=== PATIENT | male | born 1950 | race Caucasian/White ===

== ENCOUNTER 2019-06-01 03:24 | Inpatient (IN) | payer MEDICARE ==
[~2019-06-01] VITALS: Ht 180.3 cm; Wt 85.2 kg
[2019-06-01] MEDS ORDERED: IPRATROPIUM BROM 0.5 MG/2.5ML INH SOL NEB ONE (03:30)
[2019-06-01] MEDS ORDERED: methylPREDNISolone SOD SUCC 125 MG/2 ML VL IV ONE (03:30)
[2019-06-01] MEDS ORDERED: ALBUTEROL SULF 2.5 MG/0.5ML(0.5%) NEB SOLN NEB ONE (03:30)
[2019-06-01 04:21] LABS: Hematocrit 47.2 % (41.0-53.0); Hemoglobin 15.8 g/dL (13.5-17.5); Mean Corpuscular Hemoglobin 32.5 pg (28.0-32.0); Mean Corpuscular Hgb Conc. 33.5 g/dL (32.0-36.0); Platelet Count (auto) 324 10^3/uL (140-450); Red Blood Cells 4.86 10^6/uL (4.5-5.90); Red Cell Distribution Width 13.7 % (11.8-14.3); White Blood Cell 20.7 10^3/uL (4.4-10.8)
[2019-06-01 04:22] LABS: Basophils % (manual) 0 (0.0-2.0); Blast Cells 0; Eosinophils % (manual) 0 (0-7); Metamyelocytes % 0; Myelocytes % 0; Promyelocytes % 0; Reactive Lymphocytes 0
[2019-06-01 04:47] LABS: INR 0.99 (0.9-1.15); Partial Thromboplastin Time 25.6 sec (23.64-32.05)
[2019-06-01 04:48] LABS: Band Neutrophils % (manual) 2; Lymphocytes % (manual) 16 (10.0-50.0); Monocytes % (manual) 6 (0-12)
[2019-06-01 04:51] LABS: Albumin 3.1 g/dL (3.4-5.0); Anion Gap 6 (5-15); Blood Urea Nitrogen 17 mg/dL (7-18); Carbon Dioxide 29 mmol/L (21-32); Chloride 107 mmol/L (98-107); Glucose 109 mg/dL (74-106); Magnesium 2.2 mg/dL (1.6-2.6); Potassium 3.7 mmol/L (3.5-5.1); Sodium 142 mmol/L (136-145)
[2019-06-01 04:56] LABS: Alanine Aminotransferase 23 U/L (16-61); Alkaline Phosphatase 108 U/L (45-117); Aspartate Aminotransferase 13 U/L (15-37); BUN/Creatinine Ratio 17.5; Bilirubin, Total 0.8 mg/dL (0.2-1.0); GFR African American 99 mL/min; GFR Non-African American 82 mL/min; Total Protein 6.3 g/dL (6.4-8.2)
[2019-06-01] MEDS ORDERED: ONDANSETRON HCL 4 MG/2 ML VIAL IV ONE (05:00)
[2019-06-01] MEDS ORDERED: MORPHINE SULFATE 4 MG/ML SYR/VIAL IV ONE (05:00)
[2019-06-01] MEDS ORDERED: AZITHROMYCIN 500MG/ 250ML 250 ML IV ONE (11:00)
[2019-06-01] MEDS ORDERED: ACETAMINOPHEN 500 MG TAB PO PRN (12:00)
[2019-06-01] MEDS ORDERED: HYDROcodone-ACET 5/325MG TAB PO PRN (12:00)
[2019-06-01] MEDS ORDERED: NITROGLYCERIN 0.4 MG SL TAB SL PRN (12:00)
[2019-06-01] MEDS ORDERED: MORPHINE SULF INJ 2 MG/ML SYRINGE 1ML IV PRN (12:00)
[2019-06-01] MEDS ORDERED: ONDANSETRON HCL 4 MG/2 ML VIAL IV PRN (12:00)
[2019-06-01] MEDS ORDERED: APIXABAN 2.5 MG TAB PO SCH (12:40)
--- NOTE | 2019-06-01 13:15 | NUR ---
PATIENT ARRIVED TO UNIT PATIENT ALERT AND ORIENTED X4. PATIENT ORIENTED TO UNIT, STAFF, CALL LIGHT, VISITING HOURS, BED TV AND BATHROOM AND POC PATIENT VERBALIZED UNDERSTANDING. PATIENT DENIES ANY SOB AT THIS TIME. PAIN MEDICATIONS GIVEN. BED IN LOWEST LOCKED POSITION CALL LIGHT WITHIN REACH. PATIENT GIVEN URINAL, VERBALIZED THAT HE CAN GET UP WITH WALKER BUT DOES NOT CURRENTLY HAVE IT WITH HIM PATIENT EDUCATED TO USE CALL LIGHT FOR ASSISTANCE. WILL CONTINUE TO MONITOR.
[2019-06-01] MEDS: ALBUTEROL SULF 2.5 MG/0.5ML(0.5%) NEB SOLN NEB SCH ×2 (13:24→19:40)
[2019-06-01] MEDS: IPRATROPIUM BROM 0.5 MG/2.5ML INH SOL NEB SCH ×2 (13:24→19:40)
[2019-06-01] MEDS: MORPHINE SULF INJ 2 MG/ML SYRINGE 1ML IV PRN ×2 (13:35→19:56)
[2019-06-01 14:37] VITALS: BP 108/60
[2019-06-01] MEDS ORDERED: PRE5T GT (15:00)
[2019-06-01] MEDS ORDERED: AMIO200T33 PO (15:00)
[2019-06-01] MEDS ORDERED: METO-169 PO (15:00)
[2019-06-01] MEDS ORDERED: ATOR20TA50 PO (15:00)
[2019-06-01] MEDS ORDERED: APIX5TAB PO (15:00)
[2019-06-01] MEDS ORDERED: CEFD300C2 PO (15:00)
[2019-06-01] MEDS: cefTRIAXone 1GM/50ML D5W 50 ML IV SCH (15:39)
--- NOTE | 2019-06-01 16:45 | NUR ---
MRSA SWAB OBTAINED AND SENT TO LAB
--- NOTE | 2019-06-01 16:48 | NUR ---
PAGED REGARDING ELIQUIS DOSE PER PHARMACY. AWAITING RESPONSE
[2019-06-01 17:27] VITALS: BP 105/63
--- NOTE | 2019-06-01 18:30 | NUR ---
CALLED BACK PER NADINE TO STOP LEVAQUIN AND TO CHANGE ELIQUIS DOSE TO PATIENT PRESCRIBED DOSE PER PHARMACY RECOMMENDATION
[2019-06-01 18:54] LABS: Urine Bacteria NONE SEEN /hpf (None Seen); Urine Blood Negative /uL (Negative); Urine Mucus FEW (None Seen); Urine Specific Gravity 1.023 (1.001-1.035); Urine WBC 2 /hpf (0 - 3)
[2019-06-01] MEDS: BUDESONIDE (INHALATION) 0.5 MG/2 ML NEB NEB SCH (19:40)
--- NOTE | 2019-06-01 19:50 | NUR ---
Opening Shift Note Assumed care of patient, awake, AAOX4. No S/S of distress/SOB. On 2L oxygen via nasal cannula. C/O pain 8/10 to lower back. Bed in lowest locked position, side rails up x2, call light within reach. Instructed on POC and to call for assist PRN, will continue to monitor for changes Q1hr and PRN.
[2019-06-01 20:00] VITALS: BP 129/79
[2019-06-01 21:55] VITALS: BP 129/79
[2019-06-01] MEDS: methylPREDNISolone SOD SUCC 40 MG/ML VL IV SCH (22:09)
[2019-06-01] MEDS: APIXABAN 5 MG TAB PO SCH (22:10)
[2019-06-02] MEDS: MORPHINE SULF INJ 2 MG/ML SYRINGE 1ML IV PRN ×6 (01:41→21:53)
[2019-06-02 05:30] VITALS: BP 116/66
[2019-06-02] MEDS: ALBUTEROL SULF 2.5 MG/0.5ML(0.5%) NEB SOLN NEB SCH ×3 (06:26→18:54)
[2019-06-02] MEDS: BUDESONIDE (INHALATION) 0.5 MG/2 ML NEB NEB SCH ×2 (06:26→18:54)
[2019-06-02] MEDS: IPRATROPIUM BROM 0.5 MG/2.5ML INH SOL NEB SCH ×3 (06:26→18:54)
[2019-06-02 06:48] LABS: Potassium 4.6 mmol/L (3.5-5.1)
[2019-06-02 06:52] LABS: BUN/Creatinine Ratio 21.2
[2019-06-02 06:56] LABS: Hematocrit 43.5 % (41.0-53.0); Hemoglobin 14.5 g/dL (13.5-17.5); Mean Corpuscular Hemoglobin 32.4 pg (28.0-32.0); Mean Corpuscular Hgb Conc. 33.4 g/dL (32.0-36.0); Platelet Count (auto) 261 10^3/uL (140-450); Red Blood Cells 4.48 10^6/uL (4.5-5.90); Red Cell Distribution Width 13.6 % (11.8-14.3)
--- NOTE | 2019-06-02 07:30 | NUR ---
Opening Shift Note Assumed care of patient, awake and alert. No S/S of distress/SOB or pain. Instructed on POC and to call for assist PRN, will continue to monitor for changes Q1hr and PRN.
[2019-06-02 08:04] LABS: Basophils % (manual) 0 (0.0-2.0); Blast Cells 0; Eosinophils % (manual) 0 (0-7); Metamyelocytes % 0; Myelocytes % 0; Promyelocytes % 0; Reactive Lymphocytes 0
[2019-06-02 08:30] VITALS: BP 103/62
[2019-06-02] MEDS: APIXABAN 5 MG TAB PO SCH ×2 (09:40→21:43)
[2019-06-02] MEDS: cefTRIAXone 1GM/50ML D5W 50 ML IV SCH (09:40)
[2019-06-02] MEDS: FAMOTIDINE 20 MG TAB PO SCH (09:40)
[2019-06-02] MEDS: methylPREDNISolone SOD SUCC 40 MG/ML VL IV SCH ×2 (09:41→21:44)
[2019-06-02] MEDS: DILTIAZEM HCL 120MG ER CAP PO SCH (10:00)
[2019-06-02] MEDS ORDERED: LEVOFLOXACIN 750MG 150 ML IV SCH (10:00)
--- NOTE | 2019-06-02 10:07 | NUR ---
Dr. Turcios in to see patient for cardiology consult.
[2019-06-02] MEDS: AZITHROMYCIN 500MG/ 250ML 250 ML IV SCH (11:39)
[2019-06-02 12:09] LABS: Band Neutrophils % (manual) 2; Lymphocytes % (manual) 3 (10.0-50.0); Monocytes % (manual) 5 (0-12)
[2019-06-02 13:11] LABS: Basophils # (auto) 0 uL; Eosinophils # (auto) 0 uL; Hemoglobin 14.7 g/dL (13.5-17.5); Lymphocytes # (auto) 0.4 uL; Lymphocytes % (auto) 3.3 % (10.0-50.0); Mean Corpuscular Hemoglobin 32.7 pg (28.0-32.0); Mean Corpuscular Hgb Conc. 33.3 g/dL (32.0-36.0); Mean Corpuscular Volume 98.1 fL (80.0-100.0); Monocytes # (auto) 0.6 uL; Monocytes % (auto) 4.9 % (0.0-12.0); Neutrophils # (auto) 12.2 uL; Neutrophils % (auto) 91.8 % (37.0-80.0); Nucleated Red Blood Cells % 0.1 %; Platelet Count (auto) 269 10^3/uL (140-450); Red Blood Cells 4.49 10^6/uL (4.5-5.90); Red Cell Distribution Width 13.8 % (11.8-14.3); White Blood Cell 13.3 10^3/uL (4.4-10.8)
[2019-06-02 13:15] VITALS: BP 97/62
[2019-06-02 13:25] LABS: Albumin 2.8 g/dL (3.4-5.0); Calcium 8.7 mg/dL (8.5-10.1); Magnesium 2.4 mg/dL (1.6-2.6); Potassium 4.1 mmol/L (3.5-5.1)
[2019-06-02 13:27] LABS: BUN/Creatinine Ratio 20.2
[2019-06-02 13:30] LABS: Bilirubin, Total 0.6 mg/dL (0.2-1.0); Total Protein 6.1 g/dL (6.4-8.2)
[2019-06-02] MEDS: ACETYLCYSTEINE 20%(200MG/ML) SOL 4ML NEB SCH ×2 (14:00→18:59)
--- NOTE | 2019-06-02 14:30 | NUR ---
Respiratory note: Received new order for Mucomyst medneb tx per Dr Locke's order. Unable to give tx at this time, medication is indicated with bronchodilator meds, which was already given at 1143. Next scheduled tx is at 1800. Will notify noc shift RT. RT at bedside, provided education on new medication. Educated pt on breathing/cough techniques for sputum sample. Provided sample cup at pt's bedside. All pt's questions answered, pt verbalized understanding.
[2019-06-02] MEDS ORDERED: IOHEXOL 350 MG/ML 100ML IJ ONE (14:42)
--- NOTE | 2019-06-02 14:45 | NUR ---
Patient to CT via WC.
--- NOTE | 2019-06-02 15:15 | NUR ---
Patient returned from CT.
[2019-06-02 16:46] VITALS: BP 124/67
--- NOTE | 2019-06-02 20:20 | NUR ---
RECEIVE IN BED WATCHING TV
[2019-06-02 22:00] VITALS: BP 127/73
[2019-06-03] MEDS: IPRATROPIUM BROM 0.5 MG/2.5ML INH SOL NEB SCH ×4 (00:08→19:22)
[2019-06-03] MEDS: ALBUTEROL SULF 2.5 MG/0.5ML(0.5%) NEB SOLN NEB SCH ×4 (00:08→19:22)
[2019-06-03] MEDS: MORPHINE SULF INJ 2 MG/ML SYRINGE 1ML IV PRN ×6 (01:50→22:37)
[2019-06-03 05:00] VITALS: BP 129/79
[2019-06-03] MEDS: ACETYLCYSTEINE 20%(200MG/ML) SOL 4ML NEB SCH ×3 (06:47→19:23)
[2019-06-03] MEDS: BUDESONIDE (INHALATION) 0.5 MG/2 ML NEB NEB SCH ×2 (06:54→19:23)
--- NOTE | 2019-06-03 07:55 | NUR ---
OPENING SHIFT NOTE: PATIENT RESTING IN BED, WALKER AT BEDSIDE. PATIENT AWAKE AND ALERT, CHEERFUL, UPDATED ON PLAN OF CARE. PATIENT VOICE IS WEAK/HOARSE, STATES HE STOPPED SMOKER A FEW MONTHS AGO. RESPIRATIONS EVEN AND UNLABORED WHEN NOT CONVERSING CALL LIGHT WITHIN REACH, ASSISTED PATIENT WITH HIS ELECTRIC SHAVER AND AM CARE. WILL CONTINUE TO MONITOR.
[2019-06-03 09:00] VITALS: BP 113/77
[2019-06-03] MEDS: AZITHROMYCIN 500MG/ 250ML 250 ML IV SCH (09:57)
[2019-06-03] MEDS: cefTRIAXone 1GM/50ML D5W 50 ML IV SCH (09:58)
[2019-06-03] MEDS: methylPREDNISolone SOD SUCC 40 MG/ML VL IV SCH ×2 (10:12→21:35)
[2019-06-03] MEDS: APIXABAN 5 MG TAB PO SCH ×2 (10:12→21:36)
[2019-06-03] MEDS: FAMOTIDINE 20 MG TAB PO SCH (10:12)
[2019-06-03] MEDS: DILTIAZEM HCL 120MG ER CAP PO SCH (10:13)
--- NOTE | 2019-06-03 11:17 | NUR ---
MD BRAMBILA AT BEDSIDE.
[2019-06-03 13:00] VITALS: BP 143/70
--- NOTE | 2019-06-03 14:13 | NUR ---
PATIENT TAKEN DOWN TO NUC MED.
--- NOTE | 2019-06-03 14:14 | NUR ---
CALL FROM IRMA DSOUZA: THIS RN GAVE ADDITIONAL PATIENT INFORMATION FOR CONTINUATION OF CARE.
--- NOTE | 2019-06-03 14:22 | NUR ---
I faxed higher level of care order to [facility]. I called [facility] and spoke with Kelly at the transfer center [phone]-provided her with updated clinical information as requested-she will present the information to her MD and let me know if they can accept the patient.
--- NOTE | 2019-06-03 16:08 | NUR ---
I called [facility] transfer center [phone] and spoke with Yazmin to make her aware of the higher level of care transfer order. I provided her with contact information for Dr. Locke as well as the nurse's station. Faxed her requested clinical information to [phone].
--- NOTE | 2019-06-03 16:22 | NUR ---
I placed [facility] on will-call (spoke with Tho) pending transfer to higher level of care. I spoke with Nurse Araceli and updated her on the status of the transfer.
[2019-06-03 17:00] VITALS: BP 133/75
--- NOTE | 2019-06-03 19:30 | NUR ---
CARE ENDORSED TO HAILEY LOPEZ.
--- NOTE | 2019-06-03 20:00 | NUR ---
RECEIVE IN BED WATCHING TV IS AWARE THAT HE WILL BE NPO AFTER MIDNIGHT FOR STRESS TEST IN AM EXPLAINED TO HIM THAT HE WILL HAVE TO HAVE 2 IV .PATIENT REFUSE TO HAVE ANOTHER IV EXPLAINED IT IS REQUIRED AND IT CAN BE PLACED AT 0400 REFUSE BUT WILL TRY AGAIN
--- NOTE | 2019-06-03 20:41 | NUR ---
TRANSFER TO HIGHER LEVEL OF CARE RECEIVED CALL FROM SCHOOL SOCIAL WORKER, TRISTEN, AT [facility] WHO STATED THAT TRANSFER WAS ON HOLD PENDING CARDIOLITE SCHEDULED 06/04/19. TRISTEN REQUESTS THAT [facility] SCHOOL SOCIAL WORKERHYPERCIL CORE TRANSFORMER ASSEMBLER [facility] AFTER CARDIOLITE COMPLETED.
[2019-06-04] VITALS (8 sets, daily range): BP systolic 120–145; BP diastolic 70–88
[2019-06-04] MEDS: MORPHINE SULF INJ 2 MG/ML SYRINGE 1ML IV PRN ×6 (02:38→23:38)
[2019-06-04] MEDS: ACETYLCYSTEINE 20%(200MG/ML) SOL 4ML NEB SCH ×2 (05:47→23:34)
[2019-06-04] MEDS: ALBUTEROL SULF 2.5 MG/0.5ML(0.5%) NEB SOLN NEB SCH ×4 (05:47→23:34)
[2019-06-04] MEDS: IPRATROPIUM BROM 0.5 MG/2.5ML INH SOL NEB SCH ×4 (05:47→23:34)
--- NOTE | 2019-06-04 07:43 | NUR ---
Opening Note Assumed pt care from [facility] nurse. Pt is a/ox4 with no s/s of distress. Pt is slightly SOB and is currently on 2 L NC. Pt is current sitting upright in bed with no complaints at this time. Discussed POC with pt and the pending stress test today; pt verbalized understanding and has been NPO since 0000. Safety measures maintained with call light within reach, be din lowest position and side rails up. Will continue to monitor for changes q1hr and prn.
[2019-06-04] MEDS ORDERED: ADENOSINE 82 MG in GIVE UN-DILUTED 0 ML IV STA (08:11)
--- NOTE | 2019-06-04 08:55 | NUR ---
Patient Taken Down to Stress Lab for Stress Test Addendum: 06/04/19 at 1016 by KATHI LINDSAY RN RN Patient back on unit from stress lab.
[2019-06-04] MEDS: APIXABAN 5 MG TAB PO SCH ×2 (10:05→21:53)
[2019-06-04] MEDS: cefTRIAXone 1GM/50ML D5W 50 ML IV SCH (10:05)
[2019-06-04] MEDS: DILTIAZEM HCL 120MG ER CAP PO SCH (10:05)
[2019-06-04] MEDS: methylPREDNISolone SOD SUCC 40 MG/ML VL IV SCH ×2 (10:06→21:53)
[2019-06-04] MEDS: FAMOTIDINE 20 MG TAB PO SCH (10:06)
[2019-06-04] MEDS: AZITHROMYCIN 500MG/ 250ML 250 ML IV SCH (11:00)
[2019-06-04] MEDS: BUDESONIDE (INHALATION) 0.5 MG/2 ML NEB NEB SCH ×2 (11:48→23:35)
--- NOTE | 2019-06-04 12:21 | NUR ---
Nutrition Assessment Notes please see attached link for complete assessment Est. Needs ABW [id number] kcal (20-23 kcal/kgBW), 87-95 gms pro (1.0-1.1 gms/kgBW). Will continue to monitor pertinent labs and reassess nutrient need prn Addendum: 06/04/19 at [address] Amended: Links added.
--- NOTE | 2019-06-04 13:02 | NUR ---
I called [facility] transfer center [phone] and spoke with Annie to let her know that patient's stress test was completed-per Annie they will continue working on the transfer-they will connect their MD with Dr. Locke and let me know if they are able to accept this patient. I called [facility] and spoke with Tho to ensure that they remain on will-call pending transfer.
--- NOTE | 2019-06-04 14:22 | NUR ---
assessment Patient is a 68 year old male who is alert and oriented. Patients cognitive abilities are intact. Prior to admission patient lived home alone and functioned independently. Patient informed me he is able to care for his own ADLs. Per patient he has been diagnosed with throat cancer and is being transferred to [facility]. Patient agrees with transfer. Patient is dealing with his diagnosis well. Patient informed me he knew something was wrong a couple months ago and quit smoking then. I provided emotional support to patient and discussed support groups. At this time patient is dealing well and needs no intervention at this time. I informed patient he has a right to speak to a long term care social worker regarding all care. I informed patient he has a right to participate in any and all discharge planning. Patient does not have a POA and advanced directive. I have offered patient information on POA and advanced directives. I informed the patient the advantages and benefits of having an Advanced Directive. Patient verbalized understanding and agreed to discharge plan. Addendum: 06/04/19 at 1444 by Brigette LEAL Amended: Links added.
--- NOTE | 2019-06-04 16:30 | NUR ---
Pt Self-D/C'ed IV to Wrist PT accidently d/c'ed IV to his R wrist. Pressure applied to the site for 3 minutes, catheter was removed fully intact, and dressing was then wrapped in coban. Pt instructed to keep dressing on for 30 minutes.
--- NOTE | 2019-06-04 16:42 | NUR ---
I called [facility] transfer center [phone] and spoke with Yazmin-they are accepting this patient-just waiting for a bed assignment and they will call the nurse's station when a bed becomes available. [facility] remains on will-call-I did call them to let them know patient would be going to [facility] not [facility]. I spoke with nurse Janet to update her on the status of the transfer.
--- NOTE | 2019-06-04 16:47 | NUR ---
Transfer back agreement faxed to [facility].
--- NOTE | 2019-06-04 16:52 | NUR ---
Patient Aware of Transfer Pt aware of acceptance to [facility]. Pt signed transfer agreement.
--- NOTE | 2019-06-04 16:59 | NUR ---
Jazzmine Pugh Questioning Transfer Orders/Plan Jazzmine DIAZ, awaiting response. Addendum: 06/04/19 at 1744 by KATHI LINDSAY RN RN SIGNED TRANSFER PAPERWORK. AWAITING TRANSFER ORDERS.
--- NOTE | 2019-06-04 18:03 | NUR ---
Called [facility] Medical Transfer Center Spoke to Christen with [facility] Transfer Center and she stated that realistically, the chances are that a bed will be open tomorrow and transfer most likely in the morning. Will relay information to patient.
--- NOTE | 2019-06-04 19:40 | NUR ---
Opening Shift Note Assumed care of patient, awake and alert. No S/S of distress/SOB. Instructed on POC and to call for assist PRN, will continue to monitor for changes Q1hr and PRN.
[2019-06-05] MEDS: MORPHINE SULF INJ 2 MG/ML SYRINGE 1ML IV PRN ×5 (03:38→20:15)
[2019-06-05 05:06] VITALS: BP 131/86
[2019-06-05] MEDS: BUDESONIDE (INHALATION) 0.5 MG/2 ML NEB NEB SCH ×2 (06:59→18:56)
[2019-06-05] MEDS: ACETYLCYSTEINE 20%(200MG/ML) SOL 4ML NEB SCH ×3 (07:00→18:56)
[2019-06-05] MEDS: ALBUTEROL SULF 2.5 MG/0.5ML(0.5%) NEB SOLN NEB SCH ×3 (07:00→18:56)
[2019-06-05] MEDS: IPRATROPIUM BROM 0.5 MG/2.5ML INH SOL NEB SCH ×3 (07:00→18:56)
--- NOTE | 2019-06-05 07:00 | NUR ---
RT NOTE: PT REFUSED MUCOMYST AT THIS TIME, STATING HE DID NOT WANT TO WEAR THE MASK FOR THAT LONG SO HE ASKED WHAT MEDS HE WAS GETTING AND STATED NO MUCOMYST SINCE THAT ONE STINKS. WILL CONTINUE TO MONITOR.
--- NOTE | 2019-06-05 07:43 | NUR ---
Opening Note Assumed pt care from NOC nurse. Pt is a/ox4 with no s/s of distress or SOB. Pt is currently laying in bed with no complaints at this time. Discussed POC with pt and the pending transfer to [facility]. Discussed POC with pt; pt verbalized understanding. Safety measures maintained with call light within reach, bed in lowest position and side rails up. Will continue to monitor for changes q1hr and prn.
[2019-06-05 08:15] VITALS: BP 126/84
--- NOTE | 2019-06-05 08:47 | NUR ---
Attempted to Call [facility] Transfer Center Unable to reach anyone regarding the status of bed availability. Will call back again. [phone]
--- NOTE | 2019-06-05 09:03 | NUR ---
[facility] Transfer Center Called [facility] stated that they do have a bed available for patient. Unable to get a hold of case management. Will notify case management.
[2019-06-05] MEDS: cefTRIAXone 1GM/50ML D5W 50 ML IV SCH (09:12)
[2019-06-05] MEDS: methylPREDNISolone SOD SUCC 40 MG/ML VL IV SCH ×2 (09:12→21:19)
[2019-06-05] MEDS: DILTIAZEM HCL 120MG ER CAP PO SCH (09:13)
[2019-06-05] MEDS: APIXABAN 5 MG TAB PO SCH ×2 (09:13→21:19)
[2019-06-05] MEDS: FAMOTIDINE 20 MG TAB PO SCH (09:13)
--- NOTE | 2019-06-05 09:13 | NUR ---
I called [facility] transfer center [phone] and was placed on hold for more than 10 minutes-called a second time and had to leave a voice mail asking about bed availability for this patient.
--- NOTE | 2019-06-05 09:34 | NUR ---
I called [facility] transfer center [phone] and left message asking for update on bed availability.
--- NOTE | 2019-06-05 09:59 | NUR ---
D/C Planning Update Spoke with Jena from Case Management. She stated that [facility] does not currently have any beds available and most likely will not have any available today. She requested that I speak with the pt and let him know there is a bed available at [facility]. Spoke with pt; he states that he would rather "stick it out here" than go to [facility]. Pt states that he would rather go to [facility] and receive "better care and treatment" than go to [facility]. Made Jena aware of patient's decision. Will continue to monitor and follow closely with case management.
[2019-06-05] MEDS: AZITHROMYCIN 500MG/ 250ML 250 ML IV SCH (10:05)
--- NOTE | 2019-06-05 10:05 | NUR ---
I spoke with patient regarding the status of his transfer to higher level of care. Patient is aware that [facility] a bed available-he is refusing [facility] at this time-he wants to go to [facility]. I let him know that [facility] does not have a bed at this point and may not have one today or even in the next few days-patient is aware and still wants to "wait" for a bed at [facility]. I called [facility] transfer center and spoke with Tamanna to make her aware of patient's wishes. I spoke with Yazmin at [facility] transfer center who told me no bed available at this time-may not be one available at all today.
--- NOTE | 2019-06-05 11:15 | NUR ---
D/C Update Spoke with Christen from [facility] Transfer Center. She asked additional questions for possible bed placement. She stated that she was going to resubmit the bed request. She will notify either myself or case management if there are any openings. Will notify Jena in case management.
--- NOTE | 2019-06-05 11:37 | NUR ---
I called [facility] transfer center [phone] and spoke with Christen-she said they are still waiting for a bed to become available for this patient-they will call us when one opens up. I spoke with patient's nurse Leona regarding the status of the transfer.
[2019-06-05 12:31] VITALS: BP 127/77
--- NOTE | 2019-06-05 15:11 | NUR ---
Micro Reported Positive for MRSA in Sputum Notified Waqas best. Addendum: 06/05/19 at 1755 by KATHI LINDSAY RN RN ISOLATION PRECAUTIONS INITIATED
--- NOTE | 2019-06-05 16:15 | NUR ---
I called [facility] transfer center [phone] and left message asking for update on bed availability-provided them with the contact information for nurse's station. I called [facility] [phone] and spoke with Conor, they remain on will call pending transfer to [facility].
[2019-06-05 16:42] VITALS: BP 140/86
--- NOTE | 2019-06-05 19:50 | NUR ---
CALL FROM PHARMACY Received call from pharmacy. Patient sputum is positive for MRSA and Serratia Marcescens. Pharmacist recommends Vancomycin or Zyvox PO. States that Zyvox PO will be better since the patient will be discharged in the next few days. Will page the hospitalist for order.
[2019-06-05 21:00] VITALS: BP 130/82
--- NOTE | 2019-06-05 21:45 | NUR ---
HOSPITALIST CALL BACK Reported recommendation to hospitalist Laron. Order for Zyvox PO has been received.
[2019-06-05] MEDS ORDERED: VANCOMYCIN PER PHARMACY 0 MG IV SCH (22:00)
[2019-06-05] MEDS: LINEZOLID 600MG TABLET PO SCH (23:06)
[2019-06-06] MEDS: MORPHINE SULF INJ 2 MG/ML SYRINGE 1ML IV PRN ×6 (00:20→22:20)
[2019-06-06 04:30] VITALS: BP 137/77
[2019-06-06] MEDS: IPRATROPIUM BROM 0.5 MG/2.5ML INH SOL NEB SCH ×3 (06:33→19:36)
[2019-06-06] MEDS: ACETYLCYSTEINE 20%(200MG/ML) SOL 4ML NEB SCH ×3 (06:34→19:36)
[2019-06-06] MEDS: ALBUTEROL SULF 2.5 MG/0.5ML(0.5%) NEB SOLN NEB SCH ×3 (06:34→19:36)
[2019-06-06] MEDS: BUDESONIDE (INHALATION) 0.5 MG/2 ML NEB NEB SCH ×2 (06:46→19:36)
--- NOTE | 2019-06-06 07:15 | NUR ---
Opening Shift Note Assumed care of patient, awake and alert sitting up in bed. No S/S of distress/SOB. Instructed on POC and to call for assist PRN, patient bed in locked and lowest position and call light within reach. Will continue to monitor for changes Q1hr and PRN.
[2019-06-06 08:16] VITALS: BP 123/67
--- NOTE | 2019-06-06 09:04 | NUR ---
I called [facility] transfer center [phone] and left message asking about bed availability.
--- NOTE | 2019-06-06 10:04 | NUR ---
Yazmin with [facility] called to say they are still waiting for a bed to open up for patient.
[2019-06-06] MEDS: methylPREDNISolone SOD SUCC 40 MG/ML VL IV SCH ×2 (10:34→22:19)
[2019-06-06] MEDS: LEVOFLOXACIN 250 MG TAB PO SCH (10:35)
[2019-06-06] MEDS: APIXABAN 5 MG TAB PO SCH ×2 (10:35→22:19)
[2019-06-06] MEDS: DILTIAZEM HCL 120MG ER CAP PO SCH (10:35)
[2019-06-06] MEDS: FAMOTIDINE 20 MG TAB PO SCH (10:36)
[2019-06-06] MEDS: LINEZOLID 600MG TABLET PO SCH ×2 (10:50→22:00)
--- NOTE | 2019-06-06 12:04 | NUR ---
Dr. Kaila Bowie bedside with patient discussing plan of care.
--- NOTE | 2019-06-06 12:08 | NUR ---
Nutrition Follow-up Notes Wt.: 83.6 kg Pt was sleeping with no family by beside. 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 pt is currently on cardiac diet with adequate PO of 75% x 4 per RN doc Est. Needs ABW [id number] kcal (20-23 kcal/kgBW), 87-95 gms pro (1.0-1.1 gms/kgBW). Will continue to monitor pertinent labs and reassess nutrient need prn Labs: No new labs today 06/02: GLU 119 H, CO2 33 H, ALB 2.8 L. Skin: Mark scale 19 low risk skin intact per rn doc GI: Pt has no BM reported per bitumastic applier. PES: Altered nutrition related lab values r/t current/chronic medical condition aeb hyperglycemia, elev BUN mod hypoalb Will continue to monitor PO intake, skin status, pertinent labs and weight trend. F/u in 3-5 days. Rec.: 1.) refer to [facility] dietitian on DC. 2) continue current plan of care
[2019-06-06 12:20] VITALS: BP 137/90
[2019-06-06] MEDS ORDERED: LACTULOSE 20Gm/30ML SOLN PO ONE (12:30)
--- NOTE | 2019-06-06 15:50 | NUR ---
I called [facility] transfer center [phone] and spoke with Christen, she stated they are still waiting on a bed to open up for this patient-they will call the nurse's station when one becomes available-I called [facility] and spoke with Brielle to confirm that they remain on will-call.
[2019-06-06 16:20] VITALS: BP 145/91
--- NOTE | 2019-06-06 19:50 | NUR ---
Opening Shift Note Assumed care of patient, awake, AAOx4. No S/S of distress/SOB. Patient C/O pain 03/02 to lower back. On 4L oxygen via nasal cannula, ambulatory with walker. Bed in lowest locked position, side rails up x2, call light within reach. Instructed on POC and to call for assist PRN, will continue to monitor for changes Q1hr and PRN.
[2019-06-06 20:00] VITALS: BP 158/90
[2019-06-06 22:00] VITALS: BP 158/90
[2019-06-07] VITALS (7 sets, daily range): BP systolic 137–164; BP diastolic 71–94
[2019-06-07] MEDS: MORPHINE SULF INJ 2 MG/ML SYRINGE 1ML IV PRN ×5 (02:51→20:10)
--- NOTE | 2019-06-07 07:20 | NUR ---
Opening Shift Note Assumed care of patient, awake and alert in bed with breakfast tray. No S/S of distress/SOB or pain. Instructed on POC and to call for assist PRN, bed in lowest position and locked and call light within reach. 02 at 4L NC. Will continue to monitor for changes Q1hr and PRN.
[2019-06-07] MEDS: BUDESONIDE (INHALATION) 0.5 MG/2 ML NEB NEB SCH ×2 (07:35→18:27)
[2019-06-07] MEDS: IPRATROPIUM BROM 0.5 MG/2.5ML INH SOL NEB SCH ×4 (07:35→22:03)
[2019-06-07] MEDS: ALBUTEROL SULF 2.5 MG/0.5ML(0.5%) NEB SOLN NEB SCH ×4 (07:35→22:03)
[2019-06-07] MEDS: ACETYLCYSTEINE 20%(200MG/ML) SOL 4ML NEB SCH ×3 (07:35→18:27)
[2019-06-07] MEDS: methylPREDNISolone SOD SUCC 40 MG/ML VL IV SCH ×2 (09:33→22:00)
[2019-06-07] MEDS: DILTIAZEM HCL 120MG ER CAP PO SCH (09:33)
[2019-06-07] MEDS: APIXABAN 5 MG TAB PO SCH ×2 (09:34→22:00)
[2019-06-07] MEDS: LEVOFLOXACIN 250 MG TAB PO SCH (09:34)
[2019-06-07] MEDS: FAMOTIDINE 20 MG TAB PO SCH (09:34)
[2019-06-07] MEDS: LINEZOLID 600MG TABLET PO SCH ×2 (09:35→22:00)
--- NOTE | 2019-06-07 10:23 | NUR ---
I called [facility] transfer center [phone] and left message asking about bed availability. [facility] remains on will call.
[2019-06-07] MEDS ORDERED: ALBUTEROL SULF 2.5 MG/0.5ML(0.5%) NEB SOLN NEB PRN (14:15)
--- NOTE | 2019-06-07 14:37 | NUR ---
Dr. Pathak bedside with patient discussing plan of care. Orders carried out as given.
--- NOTE | 2019-06-07 14:40 | NUR ---
COMMUNICATION NOTE: Dr. Pathak would like a SHAMPOOER with patient while he is eating to prevent aspiration.
--- NOTE | 2019-06-07 19:40 | NUR ---
Opening Shift Note Assumed care of patient, awake, AAOx4. Isolation precautions in place. No S/S of distress/SOB. C/O pain 03/02 to lower back. On 2L oxygen via nasal cannula. Ambulatory with walker at bedside. Bed in lowest locked position, side rails up x2, call light within reach. Instructed on POC and to call for assist PRN, will continue to monitor for changes Q1hr and PRN.
[2019-06-08] MEDS: MORPHINE SULF INJ 2 MG/ML SYRINGE 1ML IV PRN ×4 (01:26→13:40)
[2019-06-08 05:28] VITALS: BP 138/96
[2019-06-08 06:19] LABS: Basophils # (auto) 0 uL; Basophils % (auto) 0.1 % (0.0-2.0); Eosinophils # (auto) 0.1 uL; Eosinophils % (auto) 0.4 % (0.0-7.0); Hematocrit 44.3 % (41.0-53.0); Hemoglobin 14.7 g/dL (13.5-17.5); Lymphocytes # (auto) 0.3 uL; Lymphocytes % (auto) 1.2 % (10.0-50.0); Mean Corpuscular Hemoglobin 32.6 pg (28.0-32.0); Mean Corpuscular Hgb Conc. 33.2 g/dL (32.0-36.0); Mean Corpuscular Volume 98.3 fL (80.0-100.0); Monocytes # (auto) 0.8 uL; Monocytes % (auto) 3.7 % (0.0-12.0); Neutrophils # (auto) 19.7 uL; Neutrophils % (auto) 94.6 % (37.0-80.0); Platelet Count (auto) 172 10^3/uL (140-450); Red Blood Cells 4.51 10^6/uL (4.5-5.90); Red Cell Distribution Width 13.9 % (11.8-14.3); White Blood Cell 20.9 10^3/uL (4.4-10.8)
[2019-06-08 06:36] LABS: Chloride 103 mmol/L (98-107); Potassium 4.4 mmol/L (3.5-5.1); Sodium 136 mmol/L (136-145)
[2019-06-08 06:45] LABS: Anion Gap 3 (5-15); Blood Urea Nitrogen 20 mg/dL (7-18); Calcium 8.6 mg/dL (8.5-10.1); Carbon Dioxide 30 mmol/L (21-32); GFR African American 147 mL/min; GFR Non-African American 121 mL/min; Glucose 137 mg/dL (74-106)
[2019-06-08] MEDS: ACETYLCYSTEINE 20%(200MG/ML) SOL 4ML NEB SCH ×2 (06:49→14:36)
[2019-06-08] MEDS: ALBUTEROL SULF 2.5 MG/0.5ML(0.5%) NEB SOLN NEB SCH ×3 (06:49→14:36)
[2019-06-08] MEDS: IPRATROPIUM BROM 0.5 MG/2.5ML INH SOL NEB SCH ×3 (06:49→14:35)
[2019-06-08] MEDS: BUDESONIDE (INHALATION) 0.5 MG/2 ML NEB NEB SCH (06:51)
--- NOTE | 2019-06-08 08:00 | NUR ---
INITIAL ASSESSMENT FINDS PT ALERT APPROPRIATE. ABLE TO COMMUNICATE. LUNG SOUNDS DIMINISHED. ON 2L NC WITH MOISTURE. VOICE IS HARSH. HE IS SPEAKING ON HIS CELL PHONE. ABLE TO CARRY ON A CONVERSATION WITH OUT DISTRESS. INDEPENDENT IN HIS CARES.
--- NOTE | 2019-06-08 08:13 | NUR ---
o/c note spoke to Lisa at [facility] and informed her pt now on tele. She stated they are holding pts and full but will make pt a priority to get a bed. Lisa will call me when bed available
[2019-06-08 09:00] VITALS: BP 143/78
[2019-06-08] MEDS: methylPREDNISolone SOD SUCC 40 MG/ML VL IV SCH (09:43)
[2019-06-08] MEDS: DILTIAZEM HCL 120MG ER CAP PO SCH (09:45)
[2019-06-08] MEDS: LEVOFLOXACIN 250 MG TAB PO SCH (09:45)
[2019-06-08] MEDS: FAMOTIDINE 20 MG TAB PO SCH (09:46)
[2019-06-08] MEDS: APIXABAN 5 MG TAB PO SCH (09:46)
[2019-06-08] MEDS: LINEZOLID 600MG TABLET PO SCH ×2 (09:53→11:07)
--- NOTE | 2019-06-08 13:30 | NUR ---
ROUNDED. PAIN WELL CONTROLLED. STATES HAS BEEN UP TO BATHROOM AND SHAVED. HE AMBULATES WITH WALKER. AID HAS CHANGED HIS LINENS.
[2019-06-08] MEDS ORDERED: methylPREDNISolone SOD SUCC 40 MG/ML VL IV SCH (13:45)
--- NOTE | 2019-06-08 15:10 | NUR ---
RECIEVED CALL FROM [facility]. DR. Isa PARKER ACCEPTING PT. ADMIT TO ROOM [address] IN [address] [place] [address]. [facility] ON WILL CALL. CONTACTED AND MADE AWARE OF TIME NEEDED TO ARRIVE AT [phone].
--- NOTE | 2019-06-08 16:55 | NUR ---
DR. ANDREINA RHODES. STABLE FOR TRANSPORT. PO MEDICATION FOR PAIN DURING TRANSPORT GIVEN.
[2019-06-08 17:00] VITALS: BP 134/70
[2019-06-08] MEDS ORDERED: HYDROcodone-ACET 7.5/325MG TAB PO ONE (17:00)
[2019-06-08] MEDS ORDERED: HYDROcodone-ACET 10/325MG TAB PO ONE (17:15)
--- NOTE | 2019-06-08 17:38 | NUR ---
REPORT GIVEN TO HARNESS INSPECTOR SANDY AT [facility]. F/U CALL TO [facility] TO CONFIRM MANUFACTURING INSPECTOR. [facility] CONFIRMS WITH THEIR DISPATCH TEAM IS DEDICATED TO MANUFACTURING INSPECTOR.
--- NOTE | 2019-06-08 19:02 | NUR ---
[facility] TAKES CUSTODY OF PT. BEDSIDE REPORT GIVEN.
== END 2019-06-08 19:00 | disposition short-term general hospital (02) | DRG 189 ==
LOC: ER 03:48 → TELE 03:49 → TELE-WESTW 13:55
PROVIDERS: ADMIT Nurse Practitioner Acute Care; ATTEND Internal Medicine Nephrology
PROC: 5A09357 Assistance with Respiratory Ventilation, Less than 24 Consecutive Hours, Continuous Positive Airway Pressure (ICD-10-PCS; principal; 2019-06-01)
DX: J96.21 Acute and chronic respiratory failure with hypoxia (principal); I26.99 Other pulmonary embolism without acute cor pulmonale; J44.1 Chronic obstructive pulmonary disease with (acute) exacerbation; E44.1 Mild protein-calorie malnutrition; I48.20 Chronic atrial fibrillation, unspecified; E03.9 Hypothyroidism, unspecified; J04.0 Acute laryngitis; I10 Essential (primary) hypertension; E78.5 Hyperlipidemia, unspecified; G89.29 Other chronic pain; F17.210 Nicotine dependence, cigarettes, uncomplicated; T38.0X5A Adverse effect of glucocorticoids and synthetic analogues, initial encounter; Z79.01 Long term (current) use of anticoagulants; Z68.26 Body mass index [BMI] 26.0-26.9, adult; Z86.711 Personal history of pulmonary embolism; Z89.511 Acquired absence of right leg below knee; Y92.89 Other specified places as the place of occurrence of the external cause; Z82.49 Family history of ischemic heart disease and other diseases of the circulatory system; Z80.3 Family history of malignant neoplasm of breast; M54.9 Dorsalgia, unspecified; Z71.6 Tobacco abuse counseling
CPT/HCPCS: 36415; 36600; 70491; 71045; 71275; 78452; 80048; 80053; 81001; 82805; 83036; 83735; 83880; 84439; 84443; 84484; 85007; 85025; 85027; 85379; 85610; 85730; 87070; 87077; 87081; 87186; 87205; 87804; 93017; 93306; 94640; 94644; 94660; 94761; 96365; 96375; G0378; J0153; J0696; J2405

== ENCOUNTER 2019-08-31 06:57 | Emergency (ER) | payer MEDICARE ==
[~2019-08-31] VITALS: Ht 190.5 cm; Wt 90.7 kg
[~2019-08-31 06:57] MED LIST: AMIO200T33 PO; APIX5TAB PO; ATOR20TA50 PO; CEFD300C2 PO; METO-169 PO; PRE5T GT
[2019-08-31] MEDS ORDERED: SODIUM CHLORIDE 0.9% 1,000 ML IV ONE (07:14)
[2019-08-31] MEDS ORDERED: HYDROmorphone HCL 2 MG/ML VL IV ONE (07:15)
[2019-08-31] MEDS ORDERED: ONDANSETRON HCL 4 MG/2 ML VIAL IV ONE (07:15)
[2019-08-31] MEDS ORDERED: OMNIPAQUE ORAL SOLN 500ml 12mg/ml PO ONE (07:51)
[2019-08-31 08:27] LABS: Eosinophils # (auto) 0 uL; Lymphocytes # (auto) 0.6 uL; Monocytes # (auto) 0.6 uL; Neutrophils % (auto) 79.7 % (37.0-80.0)
[2019-08-31 08:29] LABS: Basophils # (auto) 0.1 uL; Basophils % (auto) 0.9 % (0.0-2.0); Eosinophils % (auto) 0.5 % (0.0-7.0); Hematocrit 40.6 % (41.0-53.0); Hemoglobin 13.6 g/dL (13.5-17.5); Lymphocytes % (auto) 9.5 % (10.0-50.0); Mean Corpuscular Hemoglobin 34.4 pg (28.0-32.0); Mean Corpuscular Hgb Conc. 33.4 g/dL (32.0-36.0); Mean Corpuscular Volume 102.9 fL (80.0-100.0); Monocytes % (auto) 9.4 % (0.0-12.0); Platelet Count (auto) 260 10^3/uL (140-450); Red Blood Cells 3.95 10^6/uL (4.5-5.90); Red Cell Distribution Width 15.5 % (11.8-14.3); White Blood Cell 6.2 10^3/uL (4.4-10.8)
[2019-08-31 08:49] LABS: BUN/Creatinine Ratio 12.5; Calcium 9.8 mg/dL (8.5-10.1); Potassium 3.6 mmol/L (3.5-5.1)
[2019-08-31 09:30] VITALS: BP 122/84
== END 2019-08-31 11:18 | disposition home or self-care (01) ==
LOC: ER 06:57
DX: R13.10 Dysphagia, unspecified (principal); Z93.0 Tracheostomy status; I48.91 Unspecified atrial fibrillation; J44.9 Chronic obstructive pulmonary disease, unspecified; E78.5 Hyperlipidemia, unspecified; I10 Essential (primary) hypertension; Z79.899 Other long term (current) drug therapy
CPT/HCPCS: 36415; 70490; 71250; 80048; 83690; 83735; 85025; 96374; 96375; 99284; J1170; J2405; J7030

== ENCOUNTER 2025-06-19 19:44 | Inpatient (IN) | payer MEDICARE ==
[~2025-06-19] VITALS: Ht 190.5 cm; Wt 89.2 kg
[~2025-06-19 19:44] MED LIST changes: -METO-169 PO; +METO-289 PO
--- NOTE | 2025-06-19 19:52 | ECG ---
[facility] Test Date: 2025-06-19 Test Time: 19:46:18 Pat Name: KOTA MARCANO Department: ED Room: 0296T Gender: M Heel Varnisher: IOANA : 1950 Requested By: CLIVE HACKETT Order Number: [id number] Reading MD: Marcelino Zaldivar Measurements Intervals [place] Rate: 126 P: 0 [place]: 0 QRS: 44 QRSD: 89 T: 7 QT: 325 QTc: 471 Interpretive Statements Atrial fibrillation Ventricular premature complex Abnormal R-wave progression, early transition Borderline repolarization abnormality Borderline prolonged QT interval Baseline wander in lead(s) III,aVL,aVF Electronically Signed On 06-24-2025 14:50:47 PST by Marcelino Zaldivar Please click the below link to view image of tracing.
[2025-06-19 20:05] VITALS: PULSE 123; RESP 22; O2SAT 96
[2025-06-19 20:14] LABS: Hemoglobin 13.7 g/dL (13.5-17.5)
[2025-06-19 20:16] LABS: Hematocrit 39.9 % (41.0-53.0); Mean Corpuscular Hemoglobin 36.1 pg (28.0-32.0); Mean Corpuscular Volume 105.2 fL (80.0-100.0)
[2025-06-19] MEDS: METOPROLOL TARTRATE 1MG/1ML-5ML VIAL IV SCH (20:20)
[2025-06-19 20:21] LABS: Alanine Aminotransferase 23 U/L (7-40); Albumin 3.5 g/dL (3.2-4.8); Anion Gap 11 (5-15); BUN/Creatinine Ratio 16.9 (10.0-20.0); Blood Urea Nitrogen 14 mg/dL (9-23); Calcium 9.2 mg/dL (8.7-10.4); Carbon Dioxide 20 mmol/L (20-31); Glucose 103 mg/dL (74-106); INR 1.19 (0.9-1.15); Magnesium 1.7 mg/dL (1.6-2.6); Partial Thromboplastin Time 37.3 SEC (24.5-34.5); Potassium 4.8 mmol/L (3.5-5.1); Prothrombin Time 12.4 sec (9.3-11.8); Sodium 141 mmol/L (136-145); Total Protein 6.6 g/dL (5.7-8.2)
--- NOTE | 2025-06-19 20:26 | ED.PDOC ---
Derrick. trauma (HPI) HPI Comments 74-year-old male who came to ER for fall injury. Patient does have history of throat cancer status post tracheostomy, AFib, status post right BKA. Last night patient was transferring from his scooter to the bed, when he fell down on his right leg. The patient has been complaining of right upper leg pain and tendern ess since the fall. Chief Complaint: Fall Injury Time Seen by MD: 20:25 Primary Care Provider: VAZQUEZ Reviewed notes: Nurses Notes Allergies: Coded Allergies: NO KNOWN ALLERGIES (Unverified , 06/01/19) Home Meds Reported Medications Prednisone (PREDNISONE) 5 Mg Tb, 5 MG GT, TAB 06/01/19 Cefdinir (Cefdinir) 300 Mg Cap, 300 MG PO, CAP 06/01/19 Apixaban Base (ELIQUIS) 5 Mg Tab, 5 MG PO BID, TAB 06/01/19 Amiodarone Hcl (Amiodarone Hcl) 200 Mg Tab, 200 MG PO DAILY for 30 Days 06/01/19 Metoprolol Succinate (Metoprolol Succinate Er) 50 Mg Tab, 50 MG PO DAILY for 30 Days, MG 06/01/19 Atorvastatin Calcium (ATORVASTATIN CALCIUM) 20 Mg Tab, 20 MG PO DAILY, TAB 06/01/19 Information Source: Patient Mode of Arrival: EMS Past Medical History PAST MEDICAL HISTORY: AFIB, Cancer, COPD, High Lipids, HTN, PE Past Medical History (Other): Throat cancer Surgical History: BKA (right) Surgical History (Other): Tracheostomy, right hip surgery Family History Family History: Reviewed,noncontributory to illness Social History Smoker: Quit Less Than 1 Year Alcohol: Denies ETOH Use Drugs: Denies Drug Use Lives In: Home Constitutional: denies: chills, diaphoresis, fatigue, fever, malaise, sweats, weakness, others EENTM: denies: blurred vision, double vision, ear bleeding, ear discharge, ear drainage, ear pain, ear ringing, eye pain, eye redness, hearing loss, mouth pain, mouth swelling, nasal discharge, nose bleeding, nose congestion, nose pain, photophobia, tearing, throat pain, throat swelling, voice changes, others Respiratory: denies: cough, hemoptysis, orthopnea, SOB at rest, shortness of breath, SOB with excertion, stridor, wheezing, others Cardiovascular: denies: chest pain, dizzy spells, diaphoresis, Dyspnea on exertion, edema, irregular heart beat, left arm pain, lightheadedness, palpitations, PND, syncope, others Gastrointestinal: denies: abdomen distended, abdominal pain, blood streaked bowels, constipated, diarrhea, dysphagia, difficulty swallowing, hematemesis, melena, nausea, poor appetite, poor fluid intake, rectal bleeding, rectal pain, vomiting, others Genitourinary: denies: burning, dysuria, flank pain, frequency, hematuria, incontinence, penile discharge, penile sore, pain, testicle pain, testicle swelling, urgency, others Neurological: denies: dizziness, fainting, headache, left sided numbness, left sided weakness, numbness, paresthesia, pre-existing deficit, right sided numbness, right sided weakness, seizure, speech problems, tingling, tremors, weakness, others Musculoskeletal: denies: back pain, gout, joint pain, joint swelling, muscle pain, muscle stiffness, neck pain, others Integumetry: denies: bruises, change in color, change in hair/nails, dryness, laceration, lesions, lumps, rash, wounds, others Allergic/Immunocompromised: denies: Difficulty Healing, Frequent Infections, Hives, Itching, others Hematologic/Lymphatic: denies: anemia, blood clots, easy bleeding, easy bruising, swollen glands, others Endocrine: denies: excessive hunger, excessive sweating, excessive thirst, excessive urination, flushing, intolerance to cold, intolerance to heat, unexplained weight gain, unexplained weight loss, others Psychiatric: denies: anxiety, bipolar disorder, depression, hopeless, panic disorder, schizophrenia, sleepless, suicidal, others Physical Exam General Appearance: No Apparent Distress, Normal HEENT: Normal ENT Inspection, Pharynx Normal, TMs Normal Neck: Full Range of Motion, Non-Tender, Normal, Normal Inspection Respiratory: Chest Non-Tender, Lungs Clear, No Accessory Muscle Use, No Respiratory Distress, Normal Breath Sounds Cardiovascular: No Edema, No JVD, No Murmur, No Gallop, Normal Peripheral Pulses, Regular Rate/Rhythm Breast Exam: Deferred Gastrointestinal: No Organomegaly, Non Tender, No Pulsatile Mass, Normal Bowel Sounds, Soft Genitalia: Deferred Pelvic: Deferred Rectal: Deferred Extremities: No calf tenderness, Normal capillary refill, Normal inspection, Normal range of motion, Non-tender, No pedal edema Musculoskeletal : Apperance: Normal Neurologic: Alert, technology applications consultant II-XII nml as Tested, No Motor Deficits, Normal Affect, Normal Mood, No Sensory Deficits Cerebellar Function: Normal Reflexes: Normal Skin: Dry, Normal Color, Warm Lymphatic: No Adenopathy Was a procedure done? Was a procedure done?: No EKG EKG : Pulse Rate (adult): 126 Cardiac Rhythm: Afib Differential Diagnosis Multiple Trauma: Fractures, Abrasions, Contusion X-Ray, Labs, Meds, VS Vital Signs Date Time Temp Pulse Resp B/P (MAP) Pulse Ox O2 Delivery O2 Flow Rate FiO2 06/19/25 20:44 123 142/85 06/19/25 20:43 123 22 142/85 06/19/25 20:26 126 06/19/25 20:05 123 22 96 Room Air* 0 21 06/19/25 20:05 98.5 123 22 142/85 (104) 96 98.5 06/19/25 19:58 98.6 140 22 132/78 97 98.6 06/19/25 19:46 126 Lab Test 06/19/25 20:54 06/19/25 19:58 Range/Units Troponin I High Sensitivity 3 L 4 </=54 ng/L White Blood Count 7.5 4.4-10.8 10^3/uL Red Blood Count 3.79 L 4.5-5.90 10^6/uL Hemoglobin 13.7 13.5-17.5 g/dL Hematocrit 39.9 L 41.0-53.0 % Mean Corpuscular Volume 105.2 H 80.0-100.0 fL Mean Corpuscular Hemoglobin 36.1 H 28.0-32.0 pg Mean Corpuscular Hemoglobin Concent 34.3 32.0-36.0 g/dL Red Cell Distribution Width 13.3 11.8-14.3 % Platelet Count 242 140-450 10^3/uL Mean Platelet Volume 8.0 6.9-10.8 fL Neutrophils (%) (Auto) 37.0-80.0 % Lymphocytes (%) (Auto) 10.0-50.0 % Monocytes (%) (Auto) 0.0-12.0 % Basophils (%) (Auto) 0.0-2.0 % Neutrophils # (Auto) 1.6-8.6 10 ^3/uL Lymphocytes # (Auto) 0.4-5.4 10 ^3/uL Monocytes # (Auto) 0-1.3 10 ^3/uL Differential Total Cells Counted 100.0 100 Neutrophils % (Manual) 74.0 37.0-80.0 Band Neutrophils % (Manual) 5.0 Lymphocytes % (Manual) 7.0 L 10.0-50.0 Monocytes % (Manual) 14.0 H 0-12 Eosinophils % (Manual) 0 0-7 Basophils % (Manual) 0 0.0-2.0 Metamyelocytes % (manual) 0 Myelocytes % (Manual) 0 Promyelocytes % (Manual) 0 Blast Cells % (Manual) 0 Reactive Lymphocytes 0 Platelet Estimate Adequate Macrocytosis Moderate Prothrombin Time 12.4 H 9.3-11.8 sec Prothrombin Time INR 1.19 H 0.9-1.15 Activated Partial Thromboplast Time 37.3 H 24.5-34.5 SEC Sodium Level 141 136-145 mmol/L Potassium Level 4.8 3.5-5.1 mmol/L Chloride Level 110 H 98-107 mmol/L Carbon Dioxide Level 20 20-31 mmol/L Anion Gap 11 5-15 Blood Urea Nitrogen 14 9-23 mg/dL Creatinine 0.83 0.700-1.30 mg/dL Glomerular Filtration Rate Calc 92 >90 mL/min BUN/Creatinine Ratio 16.9 10.0-20.0 Serum Glucose 103 74-106 mg/dL Calcium Level 9.2 8.7-10.4 mg/dL Magnesium Level 1.7 1.6-2.6 mg/dL Total Bilirubin 2.4 H 0.2-1.0 mg/dL Aspartate Amino Transferase (AST) 35 13-40 U/L Alanine Aminotransferase (ALT) 23 7-40 U/L Alkaline Phosphatase 139 H 46-116 U/L Total Protein 6.6 5.7-8.2 g/dL Albumin 3.5 3.2-4.8 g/dL Current Medications Medications (Trade) Dose Ordered Sig/Darryn Route Start Time Stop Time Status Last Admin Metoprolol Tartrate (Lopressor) 5 mg Q5M IV 06/19/25 20:00 06/19/25 20:44 Morphine Sulfate 4 mg ONCE ONCE IV 06/19/25 20:30 06/19/25 20:31 DC 06/19/25 20:43 Ondansetron HCl (Zofran) 4 mg ONCE ONCE IV 06/19/25 20:30 06/19/25 20:31 DC 06/19/25 20:44 PROCEDURE(s): RHIP - R HIP COMPLETE XRAY REASON: fall pain ORDER NUMBER(s): [id number], ACCESSION NUMBER(s): [id number] CLINICAL INDICATION: fall pain TECHNIQUE: XYXY R HIP COMPLETE XRAY Comparison: XY R FEMUR XRAY on DOS: 06/19/25 FINDINGS/IMPRESSION: : Age-indeterminate fracture within the subtrochanteric right femur. This may be acute although without priors for comparison it is difficult to be certain. Extensive instrumentation throughout the right hemipelvis, right hip, and right femur. Soft tissues are unremarkable. EDURE(s): RFEM - R FEMUR XRAY REASON: fall pain ORDER NUMBER(s): [id number], ACCESSION NUMBER(s): [id number] CLINICAL INDICATION: fall pain TECHNIQUE: XYXY R FEMUR XRAY Comparison: None FINDINGS/IMPRESSION: : Bones are demineralized. Extensive instrumentation throughout the right hemipelvis, right hip, and right femur. No definite acute fracture is seen. Time of 1ST Reevaluation: 20:20 Reevaluation 1ST: Unchanged Patient Education/Counseling: Diagnosis, Treatment Family Education/Counseling: No Family Present Departure 1 Departure Time of Disposition: 22:17 Impression: Primary Impression: Atrial fibrillation with rapid ventricular response Additional Impression: Right femoral fracture Disposition: 09 ADMITTED INPATIENT Admit to: [facility] Condition: Guarded Discharged With: Self Comments 74 year old male with a-fib, tachy, had a fall and right leg hurts. appears to be a closed right femur fracture on xray. will need admit for supportive care, ortho consult Critical Care Note Critical Care Time?: Yes (35 min-critical care time only) Critical care comment: Total critical care time: Approximately 36 minutes Due to a high probability of clinically significant, life threatening deterioration, the patient required my highest level of preparedness to intervene emergently and I personally spent this critical care time directly and personally managing the patient. This critical care time included obtaining a history; examining the patient; pulse oximetry; ordering and review of studies; arranging urgent treatment with development of a management plan; evaluation of patient's response to treatment; frequent reassessment; and, discussions with other providers. This critical care time was performed to assess and manage the high probability of imminent, life-threatening deterioration that could result in multi-organ failure. It was exclusive of separately billable procedures and treating other patients. Stability Stability form required: No Heart Score Heart Score: Heart Score Response (Comments) Value History Slightly Suspicious 0 EKG Repolarization Disturb 1 Age >65 2 Risk Factors 1 or 2 risk factors 1 Troponin Normal limit 0 Total 4 I personally scribed for CLIVE HACKETT MD ([email or web address]) on 06/19/25 at 20:26. Electronically submitted by Artemio Levine ([employer]). I personally scribed for CLIVE HACKETT MD ([email or web address]) on 06/19/25 at 21:58. Electronically submitted by Artemio Levine ([email or web address]). CLIVE HACKETT MD Jun 19, 2025 20:26
[2025-06-19 20:36] LABS: Alkaline Phosphatase 139 U/L (46-116); Bilirubin, Total 2.4 mg/dL (0.2-1.0); Chloride 110 mmol/L (98-107)
[2025-06-19] MEDS: MORPHINE SULFATE 4 MG/ML SYR/VIAL IV ONE (20:43)
[2025-06-19] MEDS: ONDANSETRON HCL 4 MG/2 ML VIAL IV ONE (20:44)
--- NOTE | 2025-06-19 21:07 | DVH ---
CLINICAL INDICATION: fall pain TECHNIQUE: XYXY R FEMUR XRAY Comparison: None FINDINGS/IMPRESSION: : Bones are demineralized. Extensive instrumentation throughout the right hemipelvis, right hip, and right femur. No definite acute fracture is seen.
[2025-06-19 21:08] LABS: Total Cells Counted 100.0 (100)
--- NOTE | 2025-06-19 21:08 | DVH ---
CLINICAL INDICATION: fall pain TECHNIQUE: XYXY R HIP COMPLETE XRAY Comparison: XY R FEMUR XRAY on DOS: 06/19/25 FINDINGS/IMPRESSION: : Age-indeterminate fracture within the subtrochanteric right femur. This may be acute although without priors for comparison it is difficult to be certain. Extensive instrumentation throughout the right hemipelvis, right hip, and right femur. Soft tissues are unremarkable.
[2025-06-19 21:09] LABS: Macrocytosis Moderate
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
[2025-06-20] VITALS (12 sets, daily range): BP systolic 102–129; BP diastolic 71–93; PULSE 55–103; RESP 16–21; TEMP 97.4–98.6; O2SAT 91–100
[2025-06-20] MEDS: HYDROcodone-ACET 5/325MG TAB PO PRN (00:34)
[2025-06-20] MEDS: HYDROcodone-ACET 5/325MG TAB PO ONE (01:02)
[2025-06-20] MEDS ORDERED: IPRA0.00 IN (03:06)
[2025-06-20] MEDS: PANTOPRAZOLE 40 MG TAB PO SCH (05:58)
[2025-06-20] MEDS ORDERED: IBUPROFEN 600 MG TAB PO PRN (06:00)
[2025-06-20] MEDS: IBUPROFEN 600 MG TAB PO ONE (06:07)
[2025-06-20 07:05] LABS: Hematocrit 41.0 % (41.0-53.0); Hemoglobin 13.9 g/dL (13.5-17.5); Mean Corpuscular Hemoglobin 36.2 pg (28.0-32.0); Mean Corpuscular Volume 106.9 fL (80.0-100.0)
[2025-06-20 07:31] LABS: Alanine Aminotransferase 27 U/L (7-40); Albumin 3.8 g/dL (3.2-4.8); Anion Gap 8 (5-15); BUN/Creatinine Ratio 16.5 (10.0-20.0); Blood Urea Nitrogen 16 mg/dL (9-23); Calcium 9.7 mg/dL (8.7-10.4); Carbon Dioxide 27 mmol/L (20-31); Chloride 107 mmol/L (98-107); Cholesterol 139 mg/dL (< 200); Potassium 4.5 mmol/L (3.5-5.1); Sodium 142 mmol/L (136-145); Total Protein 7.0 g/dL (5.7-8.2); Triglycerides 74 mg/dL (< 150)
[2025-06-20 07:37] LABS: Alkaline Phosphatase 147 U/L (46-116); Bilirubin, Total 2.6 mg/dL (0.2-1.0); Glucose 121 mg/dL (74-106); HDL Cholesterol 74 mg/dL (40-59)
[2025-06-20 08:05] LABS: Macrocytosis Moderate; Total Cells Counted 100.0 (100)
[2025-06-20] MEDS: ALBUTEROL SULF 2.5 MG/0.5ML(0.5%) NEB SOLN NEB PRN (08:26)
[2025-06-20] MEDS: IPRATROPIUM BROM 0.5 MG/2.5ML INH SOL NEB PRN (08:26)
[2025-06-20] MEDS: ENOXAPARIN SOD 80 MG/0.8ML SYRINGE SC SCH (10:20)
[2025-06-20] MEDS: METOPROLOL SUCCINATE XL 50 MG TAB PO SCH (10:20)
[2025-06-20] MEDS: AMIODARONE HCL 200 MG TAB PO SCH (10:20)
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
[2025-06-20] MEDS: MORPHINE SULFATE 4 MG/ML SYR/VIAL IV PRN (13:01)
--- NOTE | 2025-06-20 13:59 | DVHSR ---
APPROVED REPORT EXAM: LIMITED Two-dimensional and M-mode echocardiogram. Blood Pressure: 119/83 mmHg INDICATION Rule Out Heart Failure RISK FACTORS Height: 6' 3", Weight: 202 DIMENSIONS LVDd 3.8 (3.8-5.7cm) LA (2D) (1.9-4.0cm) Aortic Root (2.0-3.7cm) LVDs 2.9 (2.5-4.0cm) LA (MM) (1.9-4.0cm) Aortic Cusp Exc (1.5-2.0cm) EF (%) 45.0 (55-70%) Rt. Atrium (1.9-4.0cm) Asc. Aorta cm IVSd 0.9 (0.7-1.1cm) RV (D) (1.8-2.4cm) PWd 0.6 (0.7-1.1cm) Mitral Valve Mitral Mitral Stenosis E/A ratio 0.0 2D MVA cm2 Aortic Valve Aortic Valve Aortic Stenosis LVOT Diameter 2.6 (1.8-2.4cm) Doppler PAOLA cm2 Tricuspid Valve TR Velocity 3.22m/s RVSP 41mmHg Other Information Quality : Technically Limited Rhythm : Technically limited study due to body habitus, patient position and patient can not move. Conclusion very limited study lvef 40% mild LVH LV dilated RV dysfunction noted, enlarged moderate tricuspiid regurg moderate pulm htn very limited eval on this study , cannot assess atria or most valves well
--- NOTE | 2025-06-20 14:24 | DVH ---
CHEST RADIOGRAPH Indication: Preprocedural Technique: XY CHEST XRAY 1 VIEW COMPARISON: None FINDINGS: The cardiac silhouette is enlarged. The lungs demonstrate bilateral patchy airspace opacities. The pulmonary vasculature is prominent. Small bilateral pleural effusions, [id number]-right. Elevation left hemidiaphragm. There is no pneumothorax. Postsurgical changes in the neck region IMPRESSION: As above.
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
[2025-06-20] MEDS: HYDROcodone-ACET 10/325MG TAB PO PRN (19:37)
[2025-06-20] MEDS: ATORVASTATIN 20 MG TAB PO SCH (21:18)
[2025-06-21] VITALS (10 sets, daily range): BP systolic 112–136; BP diastolic 56–97; PULSE 60–92; RESP 16–19; TEMP 97–98.6; O2SAT 93–100
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
[2025-06-21] MEDS: THIAMINE HCL 100 MG TAB PO SCH (09:16)
[2025-06-21] MEDS: FOLIC ACID 1 MG TAB PO SCH (09:22)
--- NOTE | 2025-06-21 09:37 | DVH ---
CLINICAL HISTORY: poss fracture TECHNIQUE: CT of the left lower extremity was performed without intravenous contrast. This exam was performed according to our departmental dose optimization program. Up-to-date CT equipment and radiation dose reduction techniques are utilized as appropriate. CTDI 17 mGy DLP 1000 mGy.cm COMPARISON: XY R FEMUR XRAY on DOS: 06/19/25, XY R HIP COMPLETE XRAY on DOS: 06/19/25 FINDINGS: There has been previous right sacral/ acetabular repair with a curvilinear surgical plate with numerous screws. There is a right hip arthroplasty. There is a long right lateral femoral surgical plate within Extensive screws. There is exuberant heterotopic bone formation at the right acetabulum which extends posterior inferiorly. Is an old right inferior pubic ramus fracture deformity. There is an acute comminuted appearing right femoral fracture involving the subtrochanteric femur as well as the proximal femoral shaft. The fracture extends to the inferior margin of the hip arthroplasty laterally. There is mild soft tissue edema. There is severe fatty atrophy of the right gluteal musculature. There is severe fatty atrophy of the imaged calf musculature. IMPRESSION: Extensive previous surgeries including right sacral /acetabular repair, hip arthroplasty, and femoral surgical plate placement. Acute appearing comminuted right femoral fracture involving the subtrochanteric femur as well as proximal femoral shaft. Please read above.
[2025-06-21] MEDS: ACETAMINOPHEN 325 MG TAB PO SCH (10:15)
[2025-06-21] MEDS: MORPHINE SULFATE 4 MG/ML SYR/VIAL IV PRN (11:35)
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
[2025-06-22] VITALS (19 sets, daily range): BP systolic 113–137; BP diastolic 78–94; PULSE 78–96; RESP 16–20; TEMP 96.5–98.4; O2SAT 94–100
[2025-06-22 12:02] LABS: Hematocrit 39.8 % (41.0-53.0); Hemoglobin 13.2 g/dL (13.5-17.5); Mean Corpuscular Hemoglobin 35.8 pg (28.0-32.0); Mean Corpuscular Volume 107.5 fL (80.0-100.0); Nucleated Red Blood Cells % 0.1 %
[2025-06-22 12:18] LABS: Alanine Aminotransferase 20 U/L (7-40); Albumin 3.5 g/dL (3.2-4.8); Anion Gap 6 (5-15); BUN/Creatinine Ratio 16.5 (10.0-20.0); Blood Urea Nitrogen 16 mg/dL (9-23); Calcium 9.8 mg/dL (8.7-10.4); Carbon Dioxide 28 mmol/L (20-31); Potassium 4.1 mmol/L (3.5-5.1); Sodium 143 mmol/L (136-145); Total Protein 6.8 g/dL (5.7-8.2)
[2025-06-22 12:20] LABS: Alkaline Phosphatase 132 U/L (46-116); Bilirubin, Total 1.6 mg/dL (0.2-1.0); Chloride 109 mmol/L (98-107); Glucose 111 mg/dL (74-106)
[2025-06-22] MEDS ORDERED: VANCOMYCIN PER PHARMACY 0 MG IV SCH (12:30)
--- NOTE | 2025-06-22 12:43 | DVHPN2 ---
Progress Note Date Seen: Jun 23, 2025 Medical Necessity Reason Pt with a Central, PICC or Fol: No Subjective Patient reports: No new complaints (pain in right hip with motion) Objective vital signs Vital Sign Date Time Temp Pulse Resp B/P (MAP) Pulse Ox O2 Delivery O2 Flow Rate FiO2 06/22/25 11:17 96 18 119/84 06/22/25 10:00 96 Room Air 0.0 06/22/25 10:00 21 06/22/25 09:00 96.5 96.5 Total Intake and Output 06/21/25 06/21/25 06/22/25 15:00 23:00 07:00 Intake Total 250 ml 500 ml Output Total 200 ml Balance 250 ml 300 ml medications Current Medications Medications Dose Ordered Sig/Darryn Route Start Time Stop Time Status Last Admin Dose Admin Enoxaparin Sodium 80 mg Q12HR SC 06/20/25 10:00 06/22/25 08:37 80 MG Amiodarone HCl 200 mg Q12HR PO 06/20/25 10:00 06/22/25 08:37 200 MG Metoprolol Succinate 50 mg DAILY PO 06/20/25 10:00 06/22/25 08:36 50 MG Atorvastatin Calcium 40 mg HS PO 06/20/25 22:00 06/21/25 21:13 40 MG Pantoprazole Sodium 40 mg DAILY@0600 PO 06/20/25 06:00 06/22/25 05:15 40 MG Albuterol 2.5 mg Q8HPRN PRN NEB 06/20/25 07:00 06/22/25 06:11 2.5 MG Ipratropium [place] 0.5 mg Q8HPRN PRN NEB 06/20/25 07:00 06/22/25 06:11 0.5 MG Acetaminophen/ Hydrocodone Bitart 1 tab Q4HP PRN PO 06/20/25 09:30 06/22/25 08:35 1 TAB Thiamine HCl 100 mg DAILY PO 06/21/25 10:00 06/22/25 08:34 100 MG Folic Acid 1 mg DAILY PO 06/21/25 10:00 06/22/25 08:34 1 MG Morphine Sulfate 4 mg Q4HP PRN IV 06/21/25 10:00 06/22/25 11:17 4 MG Acetaminophen 650 mg Q6HR PO 06/21/25 10:15 06/21/25 13:28 650 MG Vancomycin HCl 0 ml @ 0 mls/hr PER PHARMACY IV 06/22/25 12:30 UNV Examination: GENERAL:Normal, MSK:Abnormal laboratory and microbiology Laboratory Tests 06/22/25 11:30 Test 06/22/25 11:30 Range/Units Serum Glucose 111 H 74-106 mg/dL Microbiology Date/Time Source Procedure Growth Status 06/20/25 09:48 Leg Right Gram Stain Pending Resulted 06/20/25 09:48 Wound Culture - Preliminary Methicillin Resistant S.aureus Resulted Problem List/Assessment/Plan Problem List/Assessment/Plan Acute right hip pain with hx of ORIF pelvis/acetabulum/femur/SOSA/ BKA with severe osteoporotic bone 1. CT right femur reviewed demonstrates fracture at stem; he has a plate that bypasses fracture site 2. NWB RLE 3. pain control 4. DVT ppx 5. incentive spirometer 6. we will attempt nonoperative treatment as only other option is a complete femoral replacement Plan discussed with: Patient Dietary Evaluation Review Comments: Cardiac diet Encourage PO intake to meet his needs offer Ke BID for wound healing Expected Outcomes/Goals: healed wounds DINORA HANKS MD Jun 22, 2025 12:43
[2025-06-22] MEDS: VANCOMYCIN 1GM/250ML KIT 250 ML IV SCH (14:21)
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
[2025-06-22] MEDS: AMIODARONE BOLUS KIT 100 ML IV ONE (18:51)
[2025-06-23] VITALS (17 sets, daily range): BP systolic 111–132; BP diastolic 77–86; PULSE 68–107; RESP 16–19; TEMP 95.5–98.2; O2SAT 95–100
[2025-06-23] MEDS ORDERED: BACDST PO (11:29)
--- NOTE | 2025-06-23 12:04 | DVHPN2 ---
Progress Note Date Seen: Jun 23, 2025 Medical Necessity Reason Pt with a Central, PICC or Fol: No Subjective Other Systems: afib was rapid improvd today no surgical plan for now Objective vital signs Vital Sign Date Time Temp Pulse Resp B/P (MAP) Pulse Ox O2 Delivery O2 Flow Rate FiO2 06/23/25 10:26 98 116/82 06/23/25 08:41 96.6 18 97 96.6 06/23/25 08:19 Room Air* 0 21 Total Intake and Output 06/22/25 06/22/25 06/23/25 15:00 23:00 07:00 Intake Total 1200 ml 200 ml Balance 1200 ml 200 ml medications Current Medications Medications Dose Ordered Sig/Darryn Route Start Time Stop Time Status Last Admin Dose Admin Enoxaparin Sodium 80 mg Q12HR SC 06/20/25 10:00 06/23/25 10:31 80 MG Amiodarone HCl 200 mg Q12HR PO 06/20/25 10:00 06/23/25 10:45 200 MG Metoprolol Succinate 50 mg DAILY PO 06/20/25 10:00 06/23/25 10:26 50 MG Atorvastatin Calcium 40 mg HS PO 06/20/25 22:00 06/22/25 22:26 40 MG Pantoprazole Sodium 40 mg DAILY@0600 PO 06/20/25 06:00 06/23/25 06:25 40 MG Albuterol 2.5 mg Q8HPRN PRN NEB 06/20/25 07:00 06/23/25 03:31 2.5 MG Ipratropium [place] 0.5 mg Q8HPRN PRN NEB 06/20/25 07:00 06/23/25 03:31 0.5 MG Acetaminophen/ Hydrocodone Bitart 1 tab Q4HP PRN PO 06/20/25 09:30 06/23/25 10:31 1 TAB Thiamine HCl 100 mg DAILY PO 06/21/25 10:00 06/23/25 10:25 100 MG Folic Acid 1 mg DAILY PO 06/21/25 10:00 06/23/25 10:25 1 MG Morphine Sulfate 4 mg Q4HP PRN IV 06/21/25 10:00 06/22/25 15:41 4 MG Acetaminophen 650 mg Q6HR PO 06/21/25 10:15 06/23/25 06:25 650 MG Vancomycin HCl 0 ml @ 0 mls/hr PER PHARMACY IV 06/22/25 12:30 Vancomycin HCl 250 ml @ 200 mls/hr Q24H IV 06/23/25 14:00 Amiodarone HCl 250 ml @ 16.66 mls/ hr Q15H1M IV 06/23/25 00:45 06/23/25 01:34 16.66 MLS/HR Examination: GENERAL:Abnormal, HEENT:Abnormal, LUNGS:Abnormal, CVS:Abnormal, ABDOMEN:Abnormal laboratory and microbiology Laboratory Tests 06/22/25 11:30 Test 06/22/25 11:30 Range/Units Serum Glucose 111 H 74-106 mg/dL Microbiology Date/Time Source Procedure Growth Status 06/20/25 09:48 Leg Right Gram Stain Pending Resulted 06/20/25 09:48 Wound Culture - Final Methicillin Resistant S.aureus Resulted Problem List/Assessment/Plan Problem List/Assessment/Plan afib rvr chronic afib coagulopathy ortho fx trach no surigcal plan transition to po amiodarone when feasible uptitrate BB when feasible restart anticoag when feasible fu with his cards 1 week Plan discussed with: Patient My Orders My Orders Orders - ASHLEY GUZMAN MD Procedure Category Date Status Time Amiodarone PHA 06/23/25 In Process 450mg/250ml Ae 00:45 Communication Order ORDERS 06/22/25 Transmitted 19:03 Dietary Evaluation Review Comments: Cardiac diet Encourage PO intake to meet his needs offer Ke BID for wound healing Expected Outcomes/Goals: healed wounds Date of Service: Jun 23, 2025 Billing Provider: ASHLEY GUZMAN MD Common Visit Codes: NOT BILLABLE ASHLEY GUZMAN MD Jun 23, 2025 12:04
[2025-06-23] MEDS ORDERED: VANCOMYCIN 1.25GM/250ML 250 ML IV SCH (14:00)
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
[2025-06-23 16:01] LABS: Hematocrit 37.3 % (41.0-53.0); Hemoglobin 12.6 g/dL (13.5-17.5); Mean Corpuscular Hemoglobin 36.7 pg (28.0-32.0); Mean Corpuscular Volume 108.3 fL (80.0-100.0); Nucleated Red Blood Cells % 0.3 %
[2025-06-23 16:16] LABS: Alanine Aminotransferase 22 U/L (7-40); Albumin 3.3 g/dL (3.2-4.8); Anion Gap 8 (5-15); BUN/Creatinine Ratio 14.3 (10.0-20.0); Blood Urea Nitrogen 14 mg/dL (9-23); Calcium 9.4 mg/dL (8.7-10.4); Carbon Dioxide 26 mmol/L (20-31); Chloride 104 mmol/L (98-107); Potassium 4.2 mmol/L (3.5-5.1); Sodium 138 mmol/L (136-145); Total Protein 6.7 g/dL (5.7-8.2)
[2025-06-23 16:23] LABS: Alkaline Phosphatase 124 U/L (46-116); Bilirubin, Total 1.4 mg/dL (0.2-1.0); Glucose 110 mg/dL (74-106)
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
[2025-06-23] MEDS: DIGOXIN (250MCG/ML) 2 ML AMPULE IV ONE (16:51)
[2025-06-23] MEDS: VANCOMYCIN 1.25GM/250ML 250 ML IV SCH (17:47)
[2025-06-24] VITALS (16 sets, daily range): BP systolic 106–124; BP diastolic 74–87; PULSE 72–98; RESP 16–19; TEMP 97.6–98.6; O2SAT 96–100
[2025-06-24] MEDS: GABAPENTIN 100 MG CAP PO SCH (16:32)
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
[2025-06-24] MEDS ORDERED: GABAPENTIN 100 MG CAP PO SCH (22:00)
[2025-06-25] VITALS (7 sets, daily range): BP systolic 130–143; BP diastolic 86–92; PULSE 74–98; RESP 18–19; TEMP 97.7–97.8; O2SAT 93–98
[2025-06-25 07:30] LABS: Hematocrit 40.4 % (41.0-53.0); Hemoglobin 13.7 g/dL (13.5-17.5); Mean Corpuscular Hemoglobin 36.2 pg (28.0-32.0); Mean Corpuscular Volume 107.1 fL (80.0-100.0); Nucleated Red Blood Cells % 0.0 %
[2025-06-25 07:48] LABS: Alanine Aminotransferase 19 U/L (7-40); Albumin 3.6 g/dL (3.2-4.8); Anion Gap 8 (5-15); BUN/Creatinine Ratio 16.9 (10.0-20.0); Blood Urea Nitrogen 15 mg/dL (9-23); Calcium 10.0 mg/dL (8.7-10.4); Carbon Dioxide 29 mmol/L (20-31); Glucose 103 mg/dL (74-106); Potassium 4.1 mmol/L (3.5-5.1); Sodium 144 mmol/L (136-145); Total Protein 6.9 g/dL (5.7-8.2)
[2025-06-25 07:49] LABS: Bilirubin, Total 1.1 mg/dL (0.2-1.0)
--- NOTE | 2025-06-25 07:56 | DVHPN2 ---
Progress Note Date Seen: Jun 25, 2025 Medical Necessity Reason Pt with a Central, PICC or Fol: No Objective vital signs Vital Sign Date Time Temp Pulse Resp B/P (MAP) Pulse Ox O2 Delivery O2 Flow Rate FiO2 06/25/25 05:00 97.7 85 19 131/86 (101) 94 97.7 06/24/25 22:03 Room Air* 0 21 Total Intake and Output 06/24/25 06/24/25 06/25/25 15:00 23:00 07:00 Intake Total 550 ml 591 ml Output Total 350 ml 50 ml Balance 200 ml 541 ml medications Current Medications Medications Dose Ordered Sig/Darryn Route Start Time Stop Time Status Last Admin Dose Admin Enoxaparin Sodium 80 mg Q12HR SC 06/20/25 10:00 06/24/25 21:38 80 MG Amiodarone HCl 200 mg Q12HR PO 06/20/25 10:00 06/24/25 21:39 200 MG Metoprolol Succinate 50 mg DAILY PO 06/20/25 10:00 06/24/25 10:26 50 MG Atorvastatin Calcium 40 mg HS PO 06/20/25 22:00 06/24/25 21:37 40 MG Pantoprazole Sodium 40 mg DAILY@0600 PO 06/20/25 06:00 06/25/25 06:55 40 MG Albuterol 2.5 mg Q8HPRN PRN NEB 06/20/25 07:00 06/24/25 22:02 2.5 MG Ipratropium [place] 0.5 mg Q8HPRN PRN NEB 06/20/25 07:00 06/24/25 22:02 0.5 MG Acetaminophen/ Hydrocodone Bitart 1 tab Q4HP PRN PO 06/20/25 09:30 06/25/25 07:48 1 TAB Thiamine HCl 100 mg DAILY PO 06/21/25 10:00 06/24/25 10:25 100 MG Folic Acid 1 mg DAILY PO 06/21/25 10:00 06/24/25 10:25 1 MG Morphine Sulfate 4 mg Q4HP PRN IV 06/21/25 10:00 06/24/25 21:40 4 MG Acetaminophen 650 mg Q6HR PO 06/21/25 10:15 06/23/25 17:47 650 MG Vancomycin HCl 0 ml @ 0 mls/hr PER PHARMACY IV 06/22/25 12:30 Vancomycin HCl 250 ml @ 200 mls/hr Q24H IV 06/23/25 18:00 06/24/25 18:42 200 MLS/HR Gabapentin 200 mg TID PO 06/24/25 15:45 06/25/25 06:54 200 MG Examination: GENERAL:Abnormal, HEENT:Abnormal, LUNGS:Abnormal, CVS:Abnormal, ABDOMEN:Abnormal laboratory and microbiology Laboratory Tests 06/25/25 06:49 Test 06/25/25 06:49 Range/Units Serum Glucose Pending Microbiology Date/Time Source Procedure Growth Status 06/20/25 09:48 Leg Right Gram Stain - Final Complete 06/20/25 09:48 Wound Culture - Final Methicillin Resistant S.aureus Complete Problem List/Assessment/Plan Problem List/Assessment/Plan afib rvr chronic afib coagulopathy ortho fx trach no surigcal plan transition to po amiodarone when feasible uptitrate BB when feasible restart anticoag when feasible fu with his cards 1 week rate controlled today in 70s Plan discussed with: Patient Dietary Evaluation Review Comments: Cardiac diet Encourage PO intake to meet his needs offer Ke BID for wound healing Expected Outcomes/Goals: healed wounds Date of Service: Jun 25, 2025 Billing Provider: ASHLEY GUZMAN MD Common Visit Codes: NOT BILLABLE ASHLEY GUZMAN MD Jun 25, 2025 07:56
[2025-06-25 07:58] LABS: Alkaline Phosphatase 132 U/L (46-116); Chloride 107 mmol/L (98-107)
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
== END 2025-06-25 12:30 | DRG 535 ==
LOC: ER 19:44 → EDBD 19:44 → OVERFLOW 23:16 → WEST WING 06-20 01:42 → TELE-WESTW 06-20 20:11
PROVIDERS: ADMIT Student in an Organized Health Care Education/Training Program; ATTEND Student in an Organized Health Care Education/Training Program
DX: S72.21XA Displaced subtrochanteric fracture of right femur, initial encounter for closed fracture (principal); R53.2 Functional quadriplegia; D68.9 Coagulation defect, unspecified; L89.892 Pressure ulcer of other site, stage 2; Z93.0 Tracheostomy status; E83.39 Other disorders of phosphorus metabolism; Z79.01 Long term (current) use of anticoagulants; I50.22 Chronic systolic (congestive) heart failure; I11.0 Hypertensive heart disease with heart failure; F10.10 Alcohol abuse, uncomplicated; J44.9 Chronic obstructive pulmonary disease, unspecified; I48.20 Chronic atrial fibrillation, unspecified; E78.5 Hyperlipidemia, unspecified; D75.89 Other specified diseases of blood and blood-forming organs; I11.9 Hypertensive heart disease without heart failure; E80.6 Other disorders of bilirubin metabolism; M81.0 Age-related osteoporosis without current pathological fracture; Z82.49 Family history of ischemic heart disease and other diseases of the circulatory system; Z80.3 Family history of malignant neoplasm of breast; Z85.818 Personal history of malignant neoplasm of other sites of lip, oral cavity, and pharynx; Z89.511 Acquired absence of right leg below knee; Z79.899 Other long term (current) drug therapy; Z87.891 Personal history of nicotine dependence; W01.0XXA Fall on same level from slipping, tripping and stumbling without subsequent striking against object, initial encounter; Y93.89 Activity, other specified; Y92.098 Other place in other non-institutional residence as the place of occurrence of the external cause; Y99.8 Other external cause status; Y90.0 Blood alcohol level of less than 20 mg/100 ml
CPT/HCPCS: 36415; 71045; 73502; 73700; 80053; 80061; 80202; 80320; 82306; 82607; 83036; 83735; 83880; 84443; 84484; 85007; 85025; 85027; 85610; 85730; 87077; 87081; 87186; 87205; 93005; 93306; 94640; 97163; 99291; G0378; J2405

== ENCOUNTER 2025-07-01 08:15 | Inpatient (IN) | payer MEDICARE ==
[~2025-07-01] VITALS: Ht 193 cm; Wt 97.5 kg
[~2025-07-01 08:15] MED LIST changes: +BACDST PO; +IPRA0.00 IN
[2025-07-01] MEDS: HYDROcodone-ACET 5/325MG TAB PO ONE (09:00)
[2025-07-01 09:19] LABS: Hematocrit 39.0 % (41.0-53.0); Hemoglobin 12.8 g/dL (13.5-17.5); Mean Corpuscular Hemoglobin 34.5 pg (28.0-32.0); Mean Corpuscular Volume 104.8 fL (80.0-100.0); Nucleated Red Blood Cells % 0.0 %
[2025-07-01 09:21] LABS: Potassium 4.4 mmol/L (3.5-5.1); Sodium 141 mmol/L (136-145)
[2025-07-01 09:22] LABS: Anion Gap 9 (5-15); Carbon Dioxide 22 mmol/L (20-31)
[2025-07-01 09:23] LABS: Calcium 10.1 mg/dL (8.7-10.4)
[2025-07-01 09:28] LABS: Chloride 110 mmol/L (98-107); Glucose 94 mg/dL (74-106)
[2025-07-01 09:29] LABS: BUN/Creatinine Ratio 16.4 (10.0-20.0); Blood Urea Nitrogen 19 mg/dL (9-23)
[2025-07-01] MEDS: ONDANSETRON HCL 4 MG/2 ML VIAL IV ONE (09:41)
[2025-07-01] MEDS: MORPHINE SULFATE 4 MG/ML SYR/VIAL IV ONE ×2 (09:42→13:07)
--- NOTE | 2025-07-01 09:58 | ED.PDOC ---
Derrick. trauma (HPI) HPI Comments 74 y/o M, with PMHx of AFib, cancer, COPD, HTN, and HLD presents to the ED for CC of s/p fall injury. Patient reports, to have suffered a fall on 06/19/25 and has since, been experiencing pain to his right hip. Patient relays, being seen at [facility] x1week ago for SS and being told to have Fx to his right hip that is keagan perable. Patient is a right BKA and endorses being unable to life his right limb against gravity without pain. Patient denies any new trauma, injury, or fall. No other symptoms or modifying factors are present at this time. Chief Complaint: Fall Injury Time Seen by MD: 09:30 Primary Care Provider: VAZQUEZ Reviewed notes: Nurses Notes, Black Top Paver Operator Notes, Medications, Allergies Allergies: Coded Allergies: NO KNOWN ALLERGIES (Unverified , 06/01/19) Home Meds Active Scripts Sulfamethoxazole W/Trimethopri (Bactrim Ds Tablet) 1 Tab Tb, 1 TAB PO BID for 7 Days, #14 TAB Prov:RICKANITA URBANO RESDIENT 06/23/25 Reported Medications Ipratropium-Albuterol (Ipratropium [place]/Albut) 1 Jose Jose, 1 JOSE IN DAILY for copd, ML 06/20/25 Prednisone (PREDNISONE) 5 Mg Tb, 5 MG GT, TAB 06/01/19 Cefdinir (Cefdinir) 300 Mg Cap, 300 MG PO, CAP 06/01/19 Apixaban Base (ELIQUIS) 5 Mg Tab, 5 MG PO BID, TAB 06/01/19 Amiodarone Hcl (Amiodarone Hcl) 200 Mg Tab, 200 MG PO DAILY for 30 Days 06/01/19 Metoprolol Succinate (Metoprolol Succinate Er) 50 Mg Tab, 50 MG PO DAILY for 30 Days, MG 06/01/19 Atorvastatin Calcium (ATORVASTATIN CALCIUM) 20 Mg Tab, 20 MG PO DAILY, TAB 06/01/19 Information Source: Patient, Relative (Child), Emergency Med Personnel Mode of Arrival: Ambulatory Severity: Moderate Timing: Days Duration: Since onset Prehospital treatment: None Location: (R) Hip Location of laceration: None Associated signs and symtoms: None Past Medical History PAST MEDICAL HISTORY: AFIB, Cancer, COPD, High Lipids, HTN, PE Surgical History: BKA (right) Family History Family History: Reviewed,noncontributory to illness Social History Smoker: Quit Less Than 1 Year Alcohol: Denies ETOH Use Drugs: Denies Drug Use Lives In: Home Constitutional: denies: chills, diaphoresis, fatigue, fever, malaise, sweats, weakness, others EENTM: denies: blurred vision, double vision, ear bleeding, ear discharge, ear drainage, ear pain, ear ringing, eye pain, eye redness, hearing loss, mouth pain, mouth swelling, nasal discharge, nose bleeding, nose congestion, nose pain, photophobia, tearing, throat pain, throat swelling, voice changes, others Respiratory: denies: cough, hemoptysis, orthopnea, SOB at rest, shortness of breath, SOB with excertion, stridor, wheezing, others Cardiovascular: denies: chest pain, dizzy spells, diaphoresis, Dyspnea on exertion, edema, irregular heart beat, left arm pain, lightheadedness, palpitations, PND, syncope, others Gastrointestinal: denies: abdomen distended, abdominal pain, blood streaked bowels, constipated, diarrhea, dysphagia, difficulty swallowing, hematemesis, melena, nausea, poor appetite, poor fluid intake, rectal bleeding, rectal pain, vomiting, others Genitourinary: denies: burning, dysuria, flank pain, frequency, hematuria, incontinence, penile discharge, penile sore, pain, testicle pain, testicle swelling, urgency, others Neurological: denies: dizziness, fainting, headache, left sided numbness, left sided weakness, numbness, paresthesia, pre-existing deficit, right sided numb ness, right sided weakness, seizure, speech problems, tingling, tremors, weakness, others Musculoskeletal: reports: others (right hip pain); denies: back pain, gout, joint pain, joint swelling, muscle pain, muscle stiffness, neck pain Integumetry: denies: bruises, change in color, change in hair/nails, dryness, laceration, lesions, lumps, rash, wounds, others Allergic/Immunocompromised: denies: Difficulty Healing, Frequent Infections, Hives, Itching, others Hematologic/Lymphatic: denies: anemia, blood clots, easy bleeding, easy bruising, swollen glands, others Endocrine: denies: excessive hunger, excessive sweating, excessive thirst, excessive urination, flushing, intolerance to cold, intolerance to heat, unexplained weight gain, unexplained weight loss, others Psychiatric: denies: anxiety, bipolar disorder, depression, hopeless, panic disorder, schizophrenia, sleepless, suicidal, others All Other Systems: Reviewed and Negative Physical Exam General Appearance: No Apparent Distress, Normal HEENT: Normal ENT Inspection, Pharynx Normal, TMs Normal Neck: Full Range of Motion, Non-Tender, Normal, Normal Inspection Respiratory: Chest Non-Tender, Lungs Clear, No Accessory Muscle Use, No Respiratory Distress, Normal Breath Sounds Cardiovascular: No Edema, No JVD, No Murmur, No Gallop, Normal Peripheral Pulses, Regular Rate/Rhythm Breast Exam: Deferred Gastrointestinal: No Organomegaly, Non Tender, No Pulsatile Mass, Normal Bowel Sounds, Soft Genitalia: Deferred Pelvic: Deferred Rectal: Deferred Extremities: No calf tenderness, Normal capillary refill, Normal inspection, Other (Right hip with diffuse tenderness to palpation, right-sided BKA, no open wounds, limited range of motion secondary to pain) Musculoskeletal : Apperance: Normal Neurologic: Alert, front office java developer II-XII nml as Tested, No Motor Deficits, Normal Affect, Normal Mood, No Sensory Deficits Cerebellar Function: Normal Reflexes: Normal Skin: Dry, Normal Color, Warm Lymphatic: No Adenopathy Was a procedure done? Was a procedure done?: No Differential Diagnosis Multiple Trauma: Closed Head Injury, Fractures, Abrasions, Contusion, Other (Dislocation, septic joint) X-Ray, Labs, Meds, VS Vital Signs Date Time Temp Pulse Resp B/P (MAP) Pulse Ox O2 Delivery O2 Flow Rate FiO2 07/01/25 09:42 105 17 117/92 07/01/25 09:00 98.1 127 19 118/73 (88) 95 98.1 07/01/25 09:00 127 19 95 Room Air 07/01/25 08:15 97.0 115 20 137/96 97 97.0 Lab Test 07/01/25 09:02 Range/Units White Blood Count 13.2 #H 4.4-10.8 10^3/uL Red Blood Count 3.72 L 4.5-5.90 10^6/uL Hemoglobin 12.8 L 13.5-17.5 g/dL Hematocrit 39.0 L 41.0-53.0 % Mean Corpuscular Volume 104.8 H 80.0-100.0 fL Mean Corpuscular Hemoglobin 34.5 H 28.0-32.0 pg Mean Corpuscular Hemoglobin Concent 32.9 32.0-36.0 g/dL Red Cell Distribution Width 13.2 11.8-14.3 % Platelet Count 360 # 140-450 10^3/uL Mean Platelet Volume 7.6 6.9-10.8 fL Neutrophils (%) (Auto) 88.2 H 37.0-80.0 % Lymphocytes (%) (Auto) 3.9 L 10.0-50.0 % Monocytes (%) (Auto) 7.3 0.0-12.0 % Eosinophils (%) (Auto) 0.4 0.0-7.0 % Basophils (%) (Auto) 0.2 0.0-2.0 % Neutrophils # (Auto) 11.6 H 1.6-8.6 10 ^3/uL Lymphocytes # (Auto) 0.5 0.4-5.4 10 ^3/uL Monocytes # (Auto) 1.0 0-1.3 10 ^3/uL Eosinophils # (Auto) 0.1 0-0.8 10 ^3/uL Basophils # (Auto) 0 0-0.2 10 ^3/uL Nucleated Red Blood Cells 0.0 % Sodium Level 141 136-145 mmol/L Potassium Level 4.4 3.5-5.1 mmol/L Chloride Level 110 H 98-107 mmol/L Carbon Dioxide Level 22 20-31 mmol/L Anion Gap 9 5-15 Blood Urea Nitrogen 19 9-23 mg/dL Creatinine 1.16 0.700-1.30 mg/dL Glomerular Filtration Rate Calc 66 >90 mL/min BUN/Creatinine Ratio 16.4 10.0-20.0 Serum Glucose 94 74-106 mg/dL Calcium Level 10.1 8.7-10.4 mg/dL Current Medications Medications (Trade) Dose Ordered Sig/Darryn Route Start Time Stop Time Status Last Admin Morphine Sulfate 4 mg ONCE ONCE IV 07/01/25 09:15 07/01/25 09:16 DC 07/01/25 09:42 Ondansetron HCl (Zofran) 4 mg ONCE ONCE IV 07/01/25 09:15 07/01/25 09:16 DC 07/01/25 09:41 X-Ray, Labs, Meds, VS Comment 74-year-old male here today with the complaints of right hip pain which has been ongoing since a fall he had on this year. No new trauma since then. Patient has already been evaluated for this pain and was admitted to the hospital and discharged to a nursing facility which he states is not eating his hip correctly. States his pain is now worse than when he 1st went to the nursing facility. Refusing to go back to that facility. Family member at bedside states that the patient has nobody that can provide the patient with the care that he needs. Plan made to admit the patient for management of his hip pain and subsequent placement. Images Reviewed?: Images reviewed and evaluated by me Time of 1ST Reevaluation: 10:00 Reevaluation 1ST: Unchanged Time of 2ND Reevaluation: 11:56 Reevaluation 2ND: Improved Patient Education/Counseling: Diagnosis, Treatment Family Education/Counseling: Diagnosis, Treatment Departure 1 Departure Time of Disposition: 11:56 Impression: Primary Impression: Hip pain Additional Impressions: Intractable pain History of femur fracture Hx of BKA Disposition: ADMITTED INPATIENT Admit to: Med Surg Condition: Stable Critical Care Note Critical Care Time?: Yes (30 min-critical care time only) Stability Stability form required: No Heart Score Heart Score: Heart Score Response (Comments) Value History N/A 0 EKG N/A 0 Age N/A 0 Risk Factors N/A 0 Troponin N/A 0 Total 0 I personally scribed for KRYSTINA EDEN MD ([email or web address]) on 07/01/25 at 09:58. Electronically submitted by Alexa Diez ([email or web address]). KRYSTINA EDEN MD Jul 01, 2025 09:58
[2025-07-01] MEDS: SODIUM CHLORIDE 0.9% 500 ML IV ONE (12:00)
[2025-07-01 15:45] VITALS: PULSE 120; RESP 20; O2SAT 94
--- NOTE | 2025-07-01 18:24 | DVH ---
XY R FEMUR XRAY COMPARISON: XY R FEMUR XRAY on DOS: 06/19/25 INDICATION: pain 2/2 fall on thanksgiving FINDINGS/IMPRESSION: Right hip arthroplasty hardware demonstrates abnormal lateral angulation with distal component likely outside femur. This appears new from prior and is suspicious for hardware loosening and/or dislocation /malposition. Recommend direct inspection. Grossly intact right femoral fixation plate and screw hardware as well as acetabular/pelvic fixation hardware. Underlying right hip and pelvis demonstrates underlying osseous deformity. Fracture lucency in the distal femur again seen which is likely from old injury. Recommend direct palpation to assess for possible acute component. Diffuse osteopenia. Below-knee amputation.
--- NOTE | 2025-07-01 18:25 | DVH ---
XY PELVIS AP COMPARISON: XY R HIP COMPLETE XRAY on DOS: 06/19/25 INDICATION: pain 2/2 fall on thanksgiving FINDINGS/IMPRESSION: Diffuse osteopenia. Grossly intact right pelvic fixation hardware. Abnormal right hip arthroplasty angulation better characterized on dedicated femur radiograph. Age indeterminate right pubic ramus fracture.
[2025-07-01] MEDS: MORPHINE SULFATE 4 MG/ML SYR/VIAL IV PRN (18:44)
[2025-07-01 19:08] LABS: Urine Protein, UAD TRACE (Negative)
--- NOTE | 2025-07-01 19:16 | DVH ---
CHEST RADIOGRAPH INDICATION: SIRS TECHNIQUE: Single frontal view of the chest was obtained COMPARISON: XY CHEST XRAY 1 VIEW on DOS: 06/20/25 FINDINGS: Lines and Tubes: None Lungs: Elevation of the left diaphragm with infiltrate and/or atelectasis in the left base. Pulmonary vascularity. Mildly prominent was seen on prior study. Findings are greater on the left than the right. Pleura: No effusion. No pneumothorax. Cardiomediastinal contours: Unremarkable Bones: No acute osseous abnormality. IMPRESSION: 1. No significant change from 06/20/2025. 2. Elevation of the left diaphragm is noted atelectasis in the left lung field. 3. Consider CT of the chest with contrast for further evaluation.
[2025-07-01 20:30] VITALS: PULSE 108; RESP 22; O2SAT 95
[2025-07-01] MEDS: AMIODARONE HCL 200 MG TAB PO ONE (23:01)
[2025-07-01] MEDS: ATORVASTATIN 20 MG TAB PO ONE (23:02)
[2025-07-01] MEDS: METOPROLOL TARTRATE 50 MG TAB PO ONE (23:03)
[2025-07-01] MEDS: HYDROcodone-ACET 5/325MG TAB PO PRN (23:43)
[2025-07-02] VITALS (8 sets, daily range): BP systolic 103–148; BP diastolic 66–100; PULSE 87–110; RESP 16–20; TEMP 97.3–98.1; O2SAT 87–100
[2025-07-02] MEDS: ENOXAPARIN SOD 100 MG/1 ML SYRINGE SC SCH (01:38)
[2025-07-02] MEDS: METOPROLOL SUCCINATE XL 50 MG TAB PO SCH (01:58)
[2025-07-02] MEDS: AMIODARONE HCL 200 MG TAB PO SCH (01:59)
[2025-07-02 06:35] LABS: Hematocrit 36.5 % (41.0-53.0); Hemoglobin 12.1 g/dL (13.5-17.5); Mean Corpuscular Hemoglobin 34.8 pg (28.0-32.0); Mean Corpuscular Volume 105.2 fL (80.0-100.0); Nucleated Red Blood Cells % 0.0 %
[2025-07-02 06:52] LABS: Alanine Aminotransferase 23 U/L (7-40); Albumin 3.2 g/dL (3.2-4.8); Anion Gap 9 (5-15); BUN/Creatinine Ratio 18.3 (10.0-20.0); Blood Urea Nitrogen 22 mg/dL (9-23); Calcium 9.6 mg/dL (8.7-10.4); Carbon Dioxide 24 mmol/L (20-31); Potassium 4.5 mmol/L (3.5-5.1); Sodium 141 mmol/L (136-145); Total Protein 6.2 g/dL (5.7-8.2)
[2025-07-02 06:54] LABS: Alkaline Phosphatase 206 U/L (46-116); Bilirubin, Total 1.2 mg/dL (0.2-1.0); Chloride 108 mmol/L (98-107); Glucose 107 mg/dL (74-106)
[2025-07-02] MEDS ORDERED: ENOXAPARIN SOD 100 MG/1 ML SYRINGE SC SCH (10:00)
[2025-07-02] MEDS ORDERED: AMIODARONE HCL 200 MG TAB PO SCH (10:00)
[2025-07-02] MEDS ORDERED: METOPROLOL SUCCINATE XL 50 MG TAB PO SCH (10:00)
[2025-07-02] MEDS: ATORVASTATIN 20 MG TAB PO SCH (11:03)
--- NOTE | 2025-07-02 11:07 | DVHHPRES ---
History of Present Illness Resident Creating Document: CK HEARN RESIDENT History of Present Illness 74-year-old male with past medical history of atrial fibrillation, throat cancer status post surgery, COPD, hyperlipidemia, hypertension, history of PE and fracture of right femur was recently in the hospital for complaints of mechanical fall at home, CT revealed right femoral fracture involving the subtrochanteric femur as well as proximal femoral shaft. Patient was nonverbal and uses a book to right what he wants to communicate. He can speak by closing the tracheostomy opening with his hands. Patient uses a scooter or walker to move around in the house. Orthopedics was consulted, advised nonoperative treatment as the only other option was complete femoral replacement. Patient mentioned excruciating pain in the right femur. Denied any chest pain, shortness of breath Past medical history Atrial fibrillation next throat cancer status post surgery, COPD, hyperlipidemia, hypertension, history of PE and fracture of right femur Past surgical history Tracheostomy Medication history Amiodarone, Eliquis, atorvastatin, ipratropium, metoprolol Social history Denied smoking, marijuana, alcohol or any other drug intake Family history Noncontributory to the above illness Review of Systems Review of Systems As described in the HPI Allergies: Coded Allergies: NO KNOWN ALLERGIES (Unverified , 06/01/19) Medications Current Medications Medications Dose Ordered Sig/Darryn Route Start Time Stop Time Status Last Admin Dose Admin Morphine Sulfate 4 mg Q6HPRN PRN IV 07/01/25 12:45 07/02/25 05:51 4 MG Atorvastatin Calcium 20 mg DAILY PO 07/02/25 10:00 Acetaminophen/ Hydrocodone Bitart 1 tab Q6HPRN PRN PO 07/01/25 23:15 07/02/25 07:31 1 TAB Amiodarone HCl 200 mg DAILY PO 07/01/25 23:45 Enoxaparin Sodium 100 mg Q12HR SC 07/01/25 23:45 07/02/25 01:38 100 MG Metoprolol Succinate 50 mg DAILY PO 07/01/25 23:45 Exam Vital Signs Vital Signs Date Time Temp Pulse Resp B/P (MAP) Pulse Ox O2 Delivery O2 Flow Rate FiO2 07/02/25 09:42 97.5 87 19 105/60 (75) 93 97.5 07/02/25 07:30 Room Air* 0 21 Exam General Appearance: Alert, Oriented X3, Cooperative, No acute distress HEENT: Atraumatic, PERRLA, EOMI, Mucous membrane moist/pink; tracheostomy opening Respiratory: Clear to auscultation, Normal air movement Cardiovascular: Regular rate, Normal S1, Normal S2, No murmurs, no chest wall tenderness Abdominal: Normal bowel sounds, Soft, No tenderness, No hepatosplenomegaly, No masses Extremities: ulcer in the right BKA stump, skin tearing in right forearm Skin: No rashes, No breakdown, No significant lesion Neuro: Normal gait, patient speaks with hand to the tracheostomy opening; Strength at 5/5 upper limb, lower limb examination deferred due to patient request(pain), Normal tone, sensation intact Psych/Mental Status: Mental status NL, Mood NL Labs/Xrays Labs Test 07/02/25 06:17 07/01/25 18:30 07/01/25 09:02 Range/Units White Blood Count 12.0 H 4.4-10.8 10^3/uL Red Blood Count 3.47 L 4.5-5.90 10^6/uL Hemoglobin 12.1 L 13.5-17.5 g/dL Hematocrit 36.5 L 41.0-53.0 % Mean Corpuscular Volume 105.2 H 80.0-100.0 fL Mean Corpuscular Hemoglobin 34.8 H 28.0-32.0 pg Mean Corpuscular Hemoglobin Concent 33.1 32.0-36.0 g/dL Red Cell Distribution Width 13.3 11.8-14.3 % Platelet Count 344 140-450 10^3/uL Mean Platelet Volume 7.7 6.9-10.8 fL Neutrophils (%) (Auto) 83.0 H 37.0-80.0 % Lymphocytes (%) (Auto) 4.8 L 10.0-50.0 % Monocytes (%) (Auto) 10.7 0.0-12.0 % Eosinophils (%) (Auto) 1.1 0.0-7.0 % Basophils (%) (Auto) 0.4 0.0-2.0 % Neutrophils # (Auto) 10.0 H 1.6-8.6 10 ^3/uL Lymphocytes # (Auto) 0.6 0.4-5.4 10 ^3/uL Monocytes # (Auto) 1.3 0-1.3 10 ^3/uL Eosinophils # (Auto) 0.1 0-0.8 10 ^3/uL Basophils # (Auto) 0 0-0.2 10 ^3/uL Nucleated Red Blood Cells 0.0 % Sodium Level 141 136-145 mmol/L Potassium Level 4.5 3.5-5.1 mmol/L Chloride Level 108 H 98-107 mmol/L Carbon Dioxide Level 24 20-31 mmol/L Anion Gap 9 5-15 Blood Urea Nitrogen 22 9-23 mg/dL Creatinine 1.20 0.700-1.30 mg/dL Glomerular Filtration Rate Calc 63 >90 mL/min BUN/Creatinine Ratio 18.3 10.0-20.0 Serum Glucose 107 H 74-106 mg/dL Calcium Level 9.6 8.7-10.4 mg/dL Total Bilirubin 1.2 H 0.2-1.0 mg/dL Aspartate Amino Transferase (AST) 32 13-40 U/L Alanine Aminotransferase (ALT) 23 7-40 U/L Alkaline Phosphatase 206 H 46-116 U/L Total Protein 6.2 5.7-8.2 g/dL Albumin 3.2 3.2-4.8 g/dL Urine Color Dark-yellow Yellow Urine Clarity Turbid H Clear Urine pH 5.5 5.0-9.0 Urine Specific [place] 1.030 1.001-1.035 Urine Protein Trace H Negative Urine Ketones Trace Negative Urine Blood 2+ H Negative /uL Urine Nitrite Negative Negative Urine Bilirubin 1+ Negative Urine Urobilinogen 8 H Negative mg/dL Urine Leukocyte Esterase Negative Negative /uL Urine RBC 143 0 - 3 /hpf Urine Microscopic WBC 4 H 0-3 /HPF Urine Squamous Epithelial Cells Few <5 /hpf Urine Calcium Oxalate Crystals Few None Seen Urine Bacteria None seen None Seen /hpf Urine Hyaline Casts Few 0 - 2 /lpf Urine Granular Casts Mod 0 /lpf Urine Mucus Few None Seen Urine Glucose Normal Normal mg/dL Magnesium Level 2.1 1.6-2.6 mg/dL SEPSIS Sepsis Screen Date sepsis recognized/suspect: Jul 02, 2025 Time Sepsis recognized/suspect: 943 Recent Procedure: No On Antibiotic Therapy: No Respiratory Rate >20: No Heart Rate >90: No Temp<36 C (96.8 F) or >38.3 C: No SBP <90 or MAP <65 mmHG: No New Acute Mental Status Change: No Is the patient on CPAP, BIPAP,: No Physician Orders Regular Diet (07/02/25 Breakfast) Vital Signs Date Time Temp Pulse Resp B/P (MAP) Pulse Ox O2 Delivery O2 Flow Rate FiO2 07/02/25 09:42 97.5 87 19 105/60 (75) 93 97.5 07/02/25 07:30 87 19 93 Room Air* 0 21 07/02/25 06:33 124 18 145/75 07/02/25 05:51 112 19 115/64 07/02/25 05:13 92 17 110/63 (79) Laboratory Tests Test 07/02/25 06:17 White Blood Count 12.0 10^3/uL (4.4-10.8) H Medications Medications Dose Ordered Sig/Darryn Route Start Time Stop Time Status Last Admin Dose Admin Acetaminophen/ Hydrocodone Bitart 1 tab Q6HPRN PRN PO 07/01/25 23:15 07/02/25 07:31 1 TAB Enoxaparin Sodium 100 mg Q12HR SC 07/01/25 23:45 07/02/25 01:38 100 MG Assessment/Plan Assessment/Plan Assessment/plan # intractable pelvic pain # fracture distal femur Orthopedics on board IV morphine RICE # leukocytosis, questionable source of infection IV ceftriaxone #Atrial fibrillation Therapeutic Lovenox Resume home meds # History of throat cancer status post surgery #COPD Albuterol p.r.n. hyperlipidemia Resume home meds hypertension Resume home meds history of PE Therapeutic Lovenox Code status discussed with the patient for greater than 21 minutes, full code Case discussion with Dr. Hamilton Plan discussed with: Patient, Other My Orders Orders - CK HEARN RESIDENT Procedure Category Date Status Time Morphine Sulfate PHA 07/01/25 In Process Injection 12:45 Admit ADMIT 07/01/25 Transmitted 12:35 Code Status CODE 07/01/25 Transmitted 12:35 Stat Ekg For Chest AIMEE 07/01/25 In Process Pain 12:35 Notify Of Changes [facility] 07/01/25 In Process From Base 12:35 Chief Power Dispatcher For AIMEE 07/01/25 In Process 24 Hours 12:35 Emergency Dysrhythmia AIMEE 07/01/25 In Process Protocol 12:35 Rhythm Strips Once AIMEE 07/01/25 In Process Every Shift 12:35 * Orthopedic Consult CONS 07/01/25 Transmitted 12:35 Chest Portable XY 07/01/25 Resulted 15:43 Amiodarone Tablet PHA 07/01/25 In Process (Cordarone Tablet) 23:45 Enoxaparin Sodium PHA 07/01/25 In Process (Lovenox) 23:45 Metoprolol Xl PHA 07/01/25 In Process Succinate (Toprol Xl) 23:45 Visit Coding STANDARD RES Billing Provider: AMIRA HAMILTON MD Date of Service if different f: Jul 01, 2025 Common Visit Codes: 31489-[id number] INP/OBS CARE (HIGH) Secondary Visit Codes: [id number] CARE PLAN 30 MINUTES CK HEARN RESIDENT Jul 02, 2025 11:07
[2025-07-02] MEDS: LACTATED RINGER'S 500 ML IV ONE (13:27)
[2025-07-02] MEDS ORDERED: ACETAMINOPHEN 325 MG TAB PO PRN (14:30)
[2025-07-02] MEDS: HYDROcodone-ACET 5/325MG TAB PO ONE (15:15)
[2025-07-02] MEDS: ALBUTEROL SULF 2.5 MG/0.5ML(0.5%) NEB SOLN NEB ONE (15:46)
[2025-07-02] MEDS: IPRATROPIUM BROM 0.5 MG/2.5ML INH SOL NEB ONE (15:46)
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
[2025-07-02] MEDS ORDERED: ALBUTEROL SULF 2.5 MG/0.5ML(0.5%) NEB SOLN NEB SCH (18:00)
[2025-07-02] MEDS: HYDROmorphone HCL 2 MG/ML VL/or syr IV PRN (18:35)
[2025-07-02] MEDS: LACTATED RINGER'S 1,000 ML IV ONE (18:38)
[2025-07-02] MEDS: ALBUTEROL SULF 2.5 MG/0.5ML(0.5%) NEB SOLN NEB SCH (19:37)
[2025-07-02] MEDS: IPRATROPIUM BROM 0.5 MG/2.5ML INH SOL NEB SCH (19:37)
[2025-07-03] VITALS (15 sets, daily range): BP systolic 102–127; BP diastolic 68–78; PULSE 78–106; RESP 16–22; TEMP 97.3–98.4; O2SAT 95–100
[2025-07-03 06:28] LABS: Urine Protein, UAD Negative (Negative)
[2025-07-03 10:32] LABS: Hematocrit 34.5 % (41.0-53.0)
[2025-07-03 10:34] LABS: Hemoglobin 11.5 g/dL (13.5-17.5); Mean Corpuscular Hemoglobin 35.3 pg (28.0-32.0); Mean Corpuscular Volume 105.6 fL (80.0-100.0); Nucleated Red Blood Cells % 0.0 %
[2025-07-03 10:42] LABS: Potassium 4.6 mmol/L (3.5-5.1); Sodium 140 mmol/L (136-145)
[2025-07-03 10:43] LABS: Anion Gap 7 (5-15); Carbon Dioxide 25 mmol/L (20-31)
[2025-07-03 10:44] LABS: Calcium 9.6 mg/dL (8.7-10.4)
[2025-07-03 10:48] LABS: BUN/Creatinine Ratio 13.3 (10.0-20.0); Blood Urea Nitrogen 13 mg/dL (9-23)
[2025-07-03 10:50] LABS: Chloride 108 mmol/L (98-107); Glucose 114 mg/dL (74-106)
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
[2025-07-04] VITALS (10 sets, daily range): BP systolic 103–139; BP diastolic 65–89; PULSE 80–100; RESP 16–20; TEMP 97.5–98.2; O2SAT 93–99
[2025-07-04 08:20] LABS: Hematocrit 37.6 % (41.0-53.0); Hemoglobin 12.4 g/dL (13.5-17.5); Mean Corpuscular Hemoglobin 34.9 pg (28.0-32.0); Mean Corpuscular Volume 105.5 fL (80.0-100.0); Nucleated Red Blood Cells % 0.0 %
[2025-07-04 08:27] LABS: Chloride 107 mmol/L (98-107); Potassium 4.3 mmol/L (3.5-5.1); Sodium 140 mmol/L (136-145)
[2025-07-04 08:28] LABS: Carbon Dioxide 28 mmol/L (20-31)
[2025-07-04 08:29] LABS: Calcium 9.6 mg/dL (8.7-10.4)
[2025-07-04 08:33] LABS: Glucose 89 mg/dL (74-106)
[2025-07-04 08:34] LABS: BUN/Creatinine Ratio 11.4 (10.0-20.0); Blood Urea Nitrogen 10 mg/dL (9-23)
[2025-07-04 10:13] LABS: Anion Gap 5 (5-15)
[2025-07-04] MEDS: HYDROcodone-ACET 10/325MG TAB PO PRN (11:53)
--- NOTE | 2025-07-04 15:21 | DVHPNRES ---
Progress Note Date Seen: Jul 04, 2025 Resident Creating Document: GERARDO ZAZUETABAIRON RESIDENT Medical Necessity Reason Pt with a Central, PICC or Fol: No Subjective Review of Systems Patient is seen and examined with the bedside No acute complaints Reports pain is well controlled Objective vital signs Vital Sign Date Time Temp Pulse Resp B/P (MAP) Pulse Ox O2 Delivery O2 Flow Rate FiO2 07/04/25 14:26 85 16 97 07/04/25 14:20 Room Air* 0 21 07/04/25 14:18 122/66 07/04/25 12:10 97.5 97.5 Total Intake and Output 07/03/25 07/03/25 07/04/25 15:00 23:00 07:00 Intake Total 878 ml 480 ml 500 ml Output Total 350 ml Balance 878 ml 130 ml 500 ml medications Current Medications Medications Dose Ordered Sig/Darryn Route Start Time Stop Time Status Last Admin Dose Admin Atorvastatin Calcium 20 mg DAILY PO 07/02/25 10:00 07/04/25 09:05 20 MG Amiodarone HCl 200 mg DAILY PO 07/01/25 23:45 07/04/25 09:05 200 MG Metoprolol Succinate 50 mg DAILY PO 07/01/25 23:45 07/04/25 09:05 50 MG Acetaminophen 650 mg Q6HP PRN PO 07/02/25 14:30 Ipratropium [place] 0.5 mg Q8HR NEB 07/02/25 22:00 07/04/25 14:20 0.5 MG Albuterol 2.5 mg Q8HR NEB 07/02/25 22:00 07/04/25 14:20 2.5 MG Acetaminophen/ Hydrocodone Bitart 1 tab Q6HP PRN PO 07/02/25 15:00 07/04/25 11:53 1 TAB Hydromorphone HCl 1 mg Q6HPRN PRN IV 07/02/25 17:00 07/04/25 14:18 1 MG Examination General Appearance: Cooperative. Well developed. Well nourished. NAD. Head Exam: Normal inspection Neck Exam: Normal inspection. Non-tender. Normal alignment Pulmonary/Respiratory: Chest non-tender. Clear bilateral breath sounds, no crackles, no wheezing. Cardiovascular/Chest: Regular rate and rhythm. No murmurs. No JVD. Peripheral Pulses: 2+ Radial (R). 2+ Radial (L). 2+ Pedal (L) Abdominal Exam: Normal bowel sounds. Soft. normal abdomen, no visible veins, Nontender. No hepatospenomegaly. No masses Ankle Exam: Negative ankle edema Lower extremities: Negative lower extremity edema, ulcer in right BKA stump, Could not elicit movement of right limb due to intense pain. Neuro/Mental Status: A&O x4. Coherent. Thoughts/Psych: Normal thought pattern. Appropriate mood and affect. Good judgement and insight Skin Exam: Normal inspection. Normal color. Warm. Dry laboratory and microbiology Laboratory Tests 07/04/25 07:56 Test 07/04/25 07:56 Range/Units Serum Glucose 89 74-106 mg/dL Microbiology Date/Time Source Procedure Growth Status 07/03/25 14:56 Nose MRSA Screen - Final Complete 07/03/25 05:27 Voided Urine Urine Culture - Preliminary Resulted 07/02/25 06:17 Blood Blood Culture - Preliminary NO GROWTH AFTER 48 HOURS OF INCUBATION. Resulted Problem List/Assessment/Plan Problem List/Assessment/Plan # Intractable pelvic pain # Fracture distal femur - Acute appearing comminuted right femoral fracture involving the subtrochanteric femur as well as proximal femoral shaft on 06/21/25 - Orthopedics consult pending - pain medications # Atrial fibrillation with RVR # Hypertensive heart disease # Hyperlipidemia - amiodarone 200 mg daily p.o., metoprolol 50 mg daily p.o. - H&H stable, started back on Eliquis, watch for any hematuria # History of throat cancer status post tracheostomy # Chronic respiratory failure, due to COPD # History of PE - Albuterol nebs p.r.n. - on Eliquis Goals of care discussed with the patient for over 18 minutes. Full code Time spent: 32 minutes Plan discussed with Dr Hamilton Plan discussed with: Patient, Other (JOHN Cárdenas) Dietary Evaluation Review Comments: Nutrition Recommendation: 1) Consider Cardiac diet 2) Monitor PO intake, lab values, weight trend, and I/O Expected Outcomes/Goals: Intake to meet >75% estimated needs FU 3-5 days Visit Coding STANDARD RES Billing Provider: AMIRA HAMILTON MD Date of Service if different f: Jul 04, 2025 Common Visit Codes: [id number] INP/OBS CARE(HIGH) SHARAD ZAZUETA RESIDENT Jul 04, 2025 15:20
--- NOTE | 2025-07-04 18:39 | DVHDSRES ---
Discharge Summary Date of Admission Resident Creating Document: SHARAD ZAZUETA RESIDENT Jul 01, 2025 at 12:35 Date of Discharge: Jul 04, 2025 Labs/Diagnostic Data: Laboratory Results Test 07/04/25 07:56 07/03/25 05:27 07/02/25 06:17 07/01/25 18:30 White Blood Count 7.9 10^3/uL (4.4-10.8) Red Blood Count 3.57 10^6/uL (4.5-5.90) Hemoglobin 12.4 g/dL (13.5-17.5) Hematocrit 37.6 % (41.0-53.0) Mean Corpuscular Volume 105.5 fL (80.0-100.0) Mean Corpuscular Hemoglobin 34.9 pg (28.0-32.0) Mean Corpuscular Hemoglobin Concent 33.0 g/dL (32.0-36.0) Red Cell Distribution Width 13.1 % (11.8-14.3) Platelet Count 338 10^3/uL (140-450) Mean Platelet Volume 7.8 fL (6.9-10.8) Neutrophils (%) (Auto) 84.6 % (37.0-80.0) Lymphocytes (%) (Auto) 5.7 % (10.0-50.0) Monocytes (%) (Auto) 7.2 % (0.0-12.0) Eosinophils (%) (Auto) 2.0 % (0.0-7.0) Basophils (%) (Auto) 0.5 % (0.0-2.0) Neutrophils # (Auto) 6.7 10 ^3/uL (1.6-8.6) Lymphocytes # (Auto) 0.4 10 ^3/uL (0.4-5.4) Monocytes # (Auto) 0.6 10 ^3/uL (0-1.3) Eosinophils # (Auto) 0.2 10 ^3/uL (0-0.8) Basophils # (Auto) 0 10 ^3/uL (0-0.2) Nucleated Red Blood Cells 0.0 % Sodium Level 140 mmol/L (136-145) Potassium Level 4.3 mmol/L (3.5-5.1) Chloride Level 107 mmol/L (98-107) Carbon Dioxide Level 28 mmol/L (20-31) Anion Gap 5 (5-15) Blood Urea Nitrogen 10 mg/dL (9-23) Creatinine 0.88 mg/dL (0.700-1.30) Glomerular Filtration Rate Calc 90 mL/min (>90) BUN/Creatinine Ratio 11.4 (10.0-20.0) Serum Glucose 89 mg/dL (74-106) Calcium Level 9.6 mg/dL (8.7-10.4) Folic Acid 17.31 ng/mL (>5.38) Urine Color Yellow (Yellow) Urine Clarity Clear (Clear) Urine pH 5.5 (5.0-9.0) Urine Specific [place] 1.024 (1.001-1.035) Urine Protein Negative (Negative) Urine Ketones Negative (Negative) Urine Blood Negative /uL (Negative) Urine Nitrite Negative (Negative) Urine Bilirubin Negative (Negative) Urine Urobilinogen 6 mg/dL (Negative) Urine Leukocyte Esterase Negative /uL (Negative) Urine RBC 5 /hpf (0 - 3) Urine Microscopic WBC 4 /HPF (0-3) Urine Squamous Epithelial Cells None seen /hpf (<5) Urine Calcium Oxalate Crystals Few (None Seen) Urine Bacteria None seen /hpf (None Seen) Urine Glucose Normal mg/dL (Normal) Total Bilirubin 1.2 mg/dL (0.2-1.0) Aspartate Amino Transferase (AST) 32 U/L (13-40) Alanine Aminotransferase (ALT) 23 U/L (7-40) Alkaline Phosphatase 206 U/L (46-116) Total Protein 6.2 g/dL (5.7-8.2) Albumin 3.2 g/dL (3.2-4.8) Urine Hyaline Casts Few /lpf (0 - 2) Urine Granular Casts Mod /lpf (0) Urine Mucus Few (None Seen) Test 07/01/25 09:02 Magnesium Level 2.1 mg/dL (1.6-2.6) Other Laboratory Tests 07/04/25 07:56 Final Diagnosis/Problems List Hip fracture with disloged hardware Discharge Disposition: Acute Care Facility Discharge Instruct/Medications Diet: Cardiac 2g Na,low cholest Activity: Bed rest Follow Up/Referral: FOllow up with PCP within one week after discharge follow with original surgion follow with pain managment on outpatient basis Medications: per transfer paper Scheduled Amiodarone Hcl (Amiodarone Hcl), 200 MG PO DAILY, (Reported) Apixaban Base (Eliquis), 5 MG PO BID, (Reported) Atorvastatin Calcium (Atorvastatin Calcium), 20 MG PO DAILY, (Reported) Ipratropium-Albuterol (Ipratropium [place]/Albut), 1 JOSE IN DAILY, (Reported) Metoprolol Succinate (Metoprolol Succinate Er), 50 MG PO DAILY, (Reported) Sulfamethoxazole W/Trimethopri (Bactrim Ds Tablet), 1 TAB PO BID Miscellaneous Medications Cefdinir (Cefdinir), 300 MG PO, (Reported) Prednisone (Prednisone), 5 MG GT, (Reported) Discharge Statement: "Patient was advised to return to the ER or call 911 if any headaches, dizziness, shortness of breath, chest pain, abdominal pain, bleeding, fevers, or worsening of medical condition. Patient was counseled about treatment plan, medications, possible side effects, patientverbalized understanding. All questions were answered to the best of my ability. This discharge took greater then 30 minutes in planning, reviewing documentation, counseling the patient, and discussing with other team members." ASSESSMENT ASSESSMENT Assessment Hip fracture with disloged hardware ANITA CAUSEY Jul 04, 2025 18:39
[2025-07-04] MEDS: APIXABAN 5 MG TAB PO SCH (21:54)
[2025-07-05] VITALS (16 sets, daily range): BP systolic 114–140; BP diastolic 68–90; PULSE 67–103; RESP 16–20; TEMP 97–98.2; O2SAT 92–100
[2025-07-05 10:01] LABS: Hematocrit 35.0 % (41.0-53.0); Hemoglobin 12.0 g/dL (13.5-17.5)
--- NOTE | 2025-07-05 14:11 | DVHPNRES ---
Progress Note Date Seen: Jul 05, 2025 Resident Creating Document: RUSSELL ARDON RESIDENT Medical Necessity Reason Pt with a Central, PICC or Fol: No Subjective Review of Systems Harinder Fajardo is a 74-year old male with past medical history of Afib, COPD, throat cancer s/p tracheostomy, right BKA, hyperlipidemia, hypertension, history of PE came to the ED with the chief complaint of right hip pain. The patient was in an accident in 2006 post which he had right BKA and surgery on right hip for femoral fracture. He had a fall 2 weeks back impacting his right hip and has been in excruciating pain since then. He was recently in the hospital when CT was done which revealed right femoral fracture involving the subtrochanteric femur as well as proximal femoral shaft. Orthopedics was consulted, advised nonoperative treatment as the only other option was complete femoral replacement. He was discharged to a SNF, but had to come back to the ED due to non resolved pain. Past medical history: Afib, COPD, throat cancer s/p tracheostomy, right BKA, hyperlipidemia, hypertension, history of PE Past surgical history: right BKA, right hip surgery, trachesotomy Home medications: Amiodarone, Eliquis, atorvastatin, ipratropium albuterol, metoprolol, prednisone Social & Personal history: Lives at home by himself, quit smoking less than 1 year ago, denies alcohol or drug use Allergies: no known allergies Patient seen and examined at bedside. Patient is alert and oriented to time, place person and responding to all questions. Patient is in distress due to right hip pain. Eyes: No Pain, No Vision change, No Conjunctivae inflammation, No Eyelid inflammation, No Redness ENT: No Ear pain, No Ear discharge, No Nose pain, No Nose discharge, No Nose congestion, No Mouth pain, No Mouth swelling, No Throat pain, No Throat swelling Cardiovascular: No Chest Pain, No Palpitations, No Orthopnea, No Paroxysmal No Dyspnea, No Edema, No Lt Headedness Respiratory: No Cough, No Dry, No Shortness of breath, No SOB with exertion, No Wheezing, No Hemoptysis, No Pleuritic Pain, No Sputum Gastrointestinal: No Nausea, No Vomiting, No Abdominal Pain, No Diarrhea, No Constipation, No Melena, No Hematochezia Genitourinary: No Dysuria, No Frequency, No Incontinence, No Hematuria, No Retention 07/03/25- the patient was seen at bedside today. All labs and charts were reviewed. The patient complained of pain in the right hip in the morning and was given his dose of Dilaudid. Pending evaluation by Orthopedics. 07/05/15: Patient seen at bedside. Patient does not complain of any pain, waiting for higher level of care. Patient accepted at [facility] , waiting for bed. Objective vital signs Vital Sign Date Time Temp Pulse Resp B/P (MAP) Pulse Ox O2 Delivery O2 Flow Rate FiO2 07/05/25 13:51 84 17 100 07/05/25 13:45 Room Air* 0 21 07/05/25 12:34 97.2 120/74 (89) 97.2 Total Intake and Output 07/04/25 07/04/25 07/05/25 15:00 23:00 07:00 Intake Total 550 ml 355 ml 500 ml Output Total 450 ml 650 ml Balance 550 ml -95 ml -150 ml medications Current Medications Medications Dose Ordered Sig/Darryn Route Start Time Stop Time Status Last Admin Dose Admin Atorvastatin Calcium 20 mg DAILY PO 07/02/25 10:00 07/05/25 09:08 20 MG Amiodarone HCl 200 mg DAILY PO 07/01/25 23:45 07/05/25 09:08 200 MG Metoprolol Succinate 50 mg DAILY PO 07/01/25 23:45 07/05/25 09:08 50 MG Acetaminophen 650 mg Q6HP PRN PO 07/02/25 14:30 Ipratropium [place] 0.5 mg Q8HR NEB 07/02/25 22:00 07/05/25 13:45 0.5 MG Albuterol 2.5 mg Q8HR NEB 07/02/25 22:00 07/05/25 13:45 2.5 MG Acetaminophen/ Hydrocodone Bitart 1 tab Q6HP PRN PO 07/02/25 15:00 07/05/25 13:29 1 TAB Hydromorphone HCl 1 mg Q6HPRN PRN IV 07/02/25 17:00 07/05/25 11:32 1 MG Apixaban 5 mg BID PO 07/04/25 22:00 07/05/25 09:08 5 MG Examination General Appearance: Cooperative. Well developed. Well nourished. NAD. Head Exam: Normal inspection Neck Exam: Normal inspection. Non-tender. Normal alignment Pulmonary/Respiratory: Chest non-tender. Clear bilateral breath sounds, no crackles, no wheezing. Cardiovascular/Chest: Regular rate and rhythm. No murmurs. No JVD. Peripheral Pulses: 2+ Radial (R). 2+ Radial (L). 2+ Pedal (L) Abdominal Exam: Normal bowel sounds. Soft. normal abdomen, no visible veins, Nontender. No hepatospenomegaly. No masses Ankle Exam: Negative ankle edema Lower extremities: Negative lower extremity edema, ulcer in right BKA stump, Could not elicit movement of right limb due to intense pain. Neuro/Mental Status: A&O x4. Coherent. Thoughts/Psych: Normal thought pattern. Appropriate mood and affect. Good judgement and insight Skin Exam: Normal inspection. Normal color. Warm. Dry laboratory and microbiology Laboratory Tests 07/05/25 09:23 07/04/25 07:56 Test 07/04/25 07:56 Range/Units Serum Glucose 89 74-106 mg/dL Microbiology Date/Time Source Procedure Growth Status 07/04/25 14:56 Leg Gram Stain Pending Resulted 07/04/25 14:56 Leg Wound Culture - Preliminary Resulted 07/03/25 05:27 Voided Urine Urine Culture - Preliminary Resulted 07/02/25 06:17 Blood Blood Culture - Preliminary NO GROWTH AFTER 72 HOURS OF INCUBATION. Resulted Problem List/Assessment/Plan Problem List/Assessment/Plan # Intractable pelvic pain # Fracture distal femur - Acute appearing comminuted right femoral fracture involving the subtrochanteric femur as well as proximal femoral shaft on 06/21/25 - Orthopedics consult pending - pain medications # Atrial fibrillation with RVR # Hypertensive heart disease # Hyperlipidemia - amiodarone 200 mg daily p.o., metoprolol 50 mg daily p.o. - H&H stable, started back on Eliquis, watch for any hematuria # History of throat cancer status post tracheostomy # Chronic respiratory failure, due to COPD # History of PE - Albuterol nebs p.r.n. - on Eliquis Goals of care discussed with the patient for over 18 minutes. Full code Time spent: 32 minutes Plan discussed with Dr Gonzalez Plan discussed with: Patient Dietary Evaluation Review Comments: Nutrition Recommendation: 1) Consider Cardiac diet 2) Monitor PO intake, lab values, weight trend, and I/O Expected Outcomes/Goals: Intake to meet >75% estimated needs FU 3-5 days Visit Coding STANDARD RES Billing Provider: ABE GONZALEZ MD Date of Service if different f: Jul 05, 2025 Common Visit Codes: [id number] INP/OBS CARE(HIGH) RUSSELL ARDON RESIDENT Jul 05, 2025 14:11 ABE GONZALEZ MD Jul 06, 2025 00:05
[2025-07-06] VITALS (16 sets, daily range): BP systolic 115–133; BP diastolic 76–94; PULSE 69–109; RESP 16–20; TEMP 96.6–97.7; O2SAT 94–100
--- NOTE | 2025-07-06 17:04 | DVHDSRES ---
Discharge Summary Date of Admission Resident Creating Document: SHARAD ZAZUETA RESIDENT Jul 01, 2025 at 12:35 Date of Discharge: Jul 06, 2025 Admitting Diagnosis # intractable pelvic pain # fracture distal femur #Atrial fibrillation # History of throat cancer status post surgery #COPD Wounds: right leg stump wound Labs/Diagnostic Data: Laboratory Results Test 07/05/25 09:23 07/04/25 07:56 07/03/25 05:27 07/02/25 06:17 Hemoglobin 12.0 g/dL (13.5-17.5) Hematocrit 35.0 % (41.0-53.0) White Blood Count 7.9 10^3/uL (4.4-10.8) Red Blood Count 3.57 10^6/uL (4.5-5.90) Mean Corpuscular Volume 105.5 fL (80.0-100.0) Mean Corpuscular Hemoglobin 34.9 pg (28.0-32.0) Mean Corpuscular Hemoglobin Concent 33.0 g/dL (32.0-36.0) Red Cell Distribution Width 13.1 % (11.8-14.3) Platelet Count 338 10^3/uL (140-450) Mean Platelet Volume 7.8 fL (6.9-10.8) Neutrophils (%) (Auto) 84.6 % (37.0-80.0) Lymphocytes (%) (Auto) 5.7 % (10.0-50.0) Monocytes (%) (Auto) 7.2 % (0.0-12.0) Eosinophils (%) (Auto) 2.0 % (0.0-7.0) Basophils (%) (Auto) 0.5 % (0.0-2.0) Neutrophils # (Auto) 6.7 10 ^3/uL (1.6-8.6) Lymphocytes # (Auto) 0.4 10 ^3/uL (0.4-5.4) Monocytes # (Auto) 0.6 10 ^3/uL (0-1.3) Eosinophils # (Auto) 0.2 10 ^3/uL (0-0.8) Basophils # (Auto) 0 10 ^3/uL (0-0.2) Nucleated Red Blood Cells 0.0 % Sodium Level 140 mmol/L (136-145) Potassium Level 4.3 mmol/L (3.5-5.1) Chloride Level 107 mmol/L (98-107) Carbon Dioxide Level 28 mmol/L (20-31) Anion Gap 5 (5-15) Blood Urea Nitrogen 10 mg/dL (9-23) Creatinine 0.88 mg/dL (0.700-1.30) Glomerular Filtration Rate Calc 90 mL/min (>90) BUN/Creatinine Ratio 11.4 (10.0-20.0) Serum Glucose 89 mg/dL (74-106) Calcium Level 9.6 mg/dL (8.7-10.4) Folic Acid 17.31 ng/mL (>5.38) Urine Color Yellow (Yellow) Urine Clarity Clear (Clear) Urine pH 5.5 (5.0-9.0) Urine Specific [place] 1.024 (1.001-1.035) Urine Protein Negative (Negative) Urine Ketones Negative (Negative) Urine Blood Negative /uL (Negative) Urine Nitrite Negative (Negative) Urine Bilirubin Negative (Negative) Urine Urobilinogen 6 mg/dL (Negative) Urine Leukocyte Esterase Negative /uL (Negative) Urine RBC 5 /hpf (0 - 3) Urine Microscopic WBC 4 /HPF (0-3) Urine Squamous Epithelial Cells None seen /hpf (<5) Urine Calcium Oxalate Crystals Few (None Seen) Urine Bacteria None seen /hpf (None Seen) Urine Glucose Normal mg/dL (Normal) Total Bilirubin 1.2 mg/dL (0.2-1.0) Aspartate Amino Transferase (AST) 32 U/L (13-40) Alanine Aminotransferase (ALT) 23 U/L (7-40) Alkaline Phosphatase 206 U/L (46-116) Total Protein 6.2 g/dL (5.7-8.2) Albumin 3.2 g/dL (3.2-4.8) Test 07/01/25 18:30 07/01/25 09:02 Urine Hyaline Casts Few /lpf (0 - 2) Urine Granular Casts Mod /lpf (0) Urine Mucus Few (None Seen) Magnesium Level 2.1 mg/dL (1.6-2.6) Other Laboratory Tests 07/05/25 09:23 07/04/25 07:56 Brief Hx & Hospital Course: Patient is a 74-year-old male with a medical history of atrial fibrillation, laryngeal cancer status post tracheostomy, right hip arthroplasty and right below-knee amputation presented to the hospital with a chief complaint of intractable right hip pain. Right femur x-ray was done which showed Right hip arthroplasty hardware demonstrates abnormal lateral angulation with distal component likely outside femur. This appears new from prior and is suspicious for hardware loosening and/or dislocation /malposition. Patient reportedly got surgery done in 2006 at [facility]. Orthopedics were consulted during last admission about a month ago during which time CT right femur was done which showed fracture at stem; a plate that bypasses fracture site and patient was recommended conservative management or the other option of complete femoral replacement. Patient was discharged to assisted facility but again came back this time with intractable pain. Patient also had right stump wound and culture showed growth of Staph aureus with a pending susceptibilities but since the patient did not have any systemic signs, was started on Bactrim DS. Given the complexity of the case [facility] were contacted for a lateral transfer which the accepted and the patient has been transferred for further orthopedic evaluation. Discharge plan: Discharge to higher level of care for orthopedic evaluation. Eliquis held on discharge. Continued on amiodarone, metoprolol succinate. Bactrim DS for 7 days Consults/Reason for consult Orthopedic consult for right hip arthroplasty hardware displacement Operations or Procedures none Condition at Discharge: Higher Level of Care Final Diagnosis/Problems List HIP FRACTURE WITH DISLOGED RIGHT HIP ARTHROPLASTY HARDWARE DIFFUSE OSTEOPENIA h/o atrial fibrillation R leg stump wound Discharge Disposition: Acute Care Facility Discharge Instruct/Medications Diet: Cardiac 2g Na,low cholest Activity: Bed rest Follow Up/Referral: Follow up with PCP within one week after discharge Follow up with [facility] Medications: per transfer paperwork Scheduled Amiodarone Hcl (Amiodarone Hcl), 200 MG PO DAILY, (Reported) Apixaban Base (Eliquis), 5 MG PO BID, (Reported) Atorvastatin Calcium (Atorvastatin Calcium), 20 MG PO DAILY, (Reported) Ipratropium-Albuterol (Ipratropium [place]/Albut), 1 JOSE IN DAILY, (Reported) Metoprolol Succinate (Metoprolol Succinate Er), 50 MG PO DAILY, (Reported) Sulfamethoxazole W/Trimethopri (Bactrim Ds Tablet), 1 TAB PO BID Miscellaneous Medications Cefdinir (Cefdinir), 300 MG PO, (Reported) Prednisone (Prednisone), 5 MG GT, (Reported) Discharge Statement: "Patient was advised to return to the ER or call 911 if any headaches, dizziness, shortness of breath, chest pain, abdominal pain, bleeding, fevers, or worsening of medical condition. Patient was counseled about treatment plan, medications, possible side effects, patientverbalized understanding. All questions were answered to the best of my ability. This discharge took greater then 30 minutes in planning, reviewing documentation, counseling the patient, and discussing with other team members." ASSESSMENT ASSESSMENT Assessment HIP FRACTURE DISLOGED RIGHT HIP ARTHROPLASTY HARDWARE DIFFUSE OSTEOPENIA Visit Coding STANDARD RES Billing Provider: ABE GONZALEZ MD Date of Service if different f: Jul 06, 2025 Common Visit Codes: 29288-CKH/OBS DISCH DAY >30min SHARAD ZAZUETA RESIDENT Jul 06, 2025 17:04
[2025-07-06] MEDS: SULFAMETHOX W/TRIMETH(800/160MG) DS TAB PO ONE (18:04)
[2025-07-06] MEDS ORDERED: SULFAMETHOX W/TRIMETH(800/160MG) DS TAB PO SCH (22:00)
== END 2025-07-06 20:28 | disposition short-term general hospital (02) | DRG 560 ==
LOC: EDBD 08:15 → ER 08:15 → OVERFLOW 12:35 → CENTRAL 07-02 14:51 → TELE-CENTR 07-04 19:23
PROVIDERS: ADMIT Student in an Organized Health Care Education/Training Program; ATTEND Student in an Organized Health Care Education/Training Program
DX: T84.124A Displacement of internal fixation device of right femur, initial encounter (principal); J96.10 Chronic respiratory failure, unspecified whether with hypoxia or hypercapnia; S72.401A Unspecified fracture of lower end of right femur, initial encounter for closed fracture; Z93.0 Tracheostomy status; J44.9 Chronic obstructive pulmonary disease, unspecified; I11.9 Hypertensive heart disease without heart failure; E78.5 Hyperlipidemia, unspecified; I48.91 Unspecified atrial fibrillation; X58.XXXA Exposure to other specified factors, initial encounter; Z87.891 Personal history of nicotine dependence; Z89.511 Acquired absence of right leg below knee; Z86.711 Personal history of pulmonary embolism; Z79.899 Other long term (current) drug therapy; Y93.89 Activity, other specified; Y92.89 Other specified places as the place of occurrence of the external cause; Y99.8 Other external cause status; Z85.21 Personal history of malignant neoplasm of larynx
CPT/HCPCS: 36415; 71045; 72170; 80048; 80053; 81001; 82746; 83735; 85014; 85018; 85025; 87040; 87077; 87081; 87086; 87186; 87205; 94640; 96374; 96375; 99291; G0378; J2405